=== PATIENT | male | born 1950 | race Caucasian/White ===

== ENCOUNTER 2022-02-01 10:09 | Outpatient (REF) | payer BC, SELFPAY ==
[2022-02-01 11:07] LABS: MANUAL DIFF FLAG NO
[2022-02-01 11:26] LABS: Basophils Percent Auto 0.8 % (0-2); Eosinophils Absolute Auto 0.2 X10*3/uL (0.0-0.4); Eosinophils Percent Auto 3.6 % (0-4); Hematocrit 44.8 % (42.0-52.0); Hemoglobin 15.3 g/dl (14.0-18.0); Imm Gran Abs Auto 0.02 X10*3/uL (0.00-0.03); Imm Gran Pct Auto 0.4 % (0.0-0.4); Lymphocytes Absolute Auto 1.4 X10*3/uL (1.2-4.9); Lymphocytes Percent Auto 29.3 % (20-40); Mean Corpuscular HGB Conc 34.2 g/dl (31.0-36.0); Mean Corpuscular Hemoglobin 30.9 pg (27.0-33.0); Mean Corpuscular Volume 90.5 fL (80.0-98.0); Mean Platelet Volume 9.1 fL (9.4-12.4); Monocytes Absolute Auto 0.5 X10*3/uL (0.1-1.2); Monocytes Percent Auto 10.1 % (2-11); Neutrophils Absolute Auto 2.7 x10*3/uL (2.0-8.3); Neutrophils Percent Auto 55.8 % (45-73); Platelet Count 299 X10*3/uL (160-400); Red Blood Count 4.95 X10*6/uL (4.60-5.80); Red Cell Distribution Width 11.9 % (11.0-16.0); White Blood Count 4.8 X10*3/uL (4.8-10.8)
[2022-02-01 12:05] LABS: Alanine Aminotransferase 25 U/L (0-40); Albumin Level 4.1 g/dL (3.5-5.0); Alkaline Phosphatase 82 U/L (39-117); Anion Gap 15 (12-20); Aspartate Amino Transferase 21 U/L (5-37); Bilirubin Total 0.8 mg/dL (0.0-1.0); Blood Urea Nitrogen 13 mg/dL (9-16); Calcium 9.5 mg/dL (8.4-10.2); Carbon Dioxide 30 mmol/L (22-29); Chloride 100 mmol/L (96-108); Cholesterol 220 mg/dL; Estimated Glomerular Filt Rate > 60; Glucose Fasting 90 mg/dL (60-99); HDL Cholesterol 60 mg/dL; LDL Cholesterol Calculated 142 mg/dl; Potassium 4.6 mmol/L (3.3-5.1); Sodium 140 mmol/L (135-145); Total Protein 6.6 g/dL (6.5-8.0); Triglycerides 92 mg/dL
[2022-02-01 12:26] LABS: Prostate Specific Antigen Scr 2.02 ng/mL (<0.05-4.0); TSH reflex Free T4 1.69 uIU/mL (0.32-4.0)
[2022-02-01 14:06] LABS: Appearance Urine Clear; Color Urine Yellow; Glucose Urine UA Negative (Negative); Leukocyte Esterase Urine Negative (Negative); Nitrite Urine Negative (Negative); PH 7.5 (5.0-9.0); Urine Blood Negative (Negative); Urine Ketones Negative (Negative); Urine Protein Negative (Neg-Trace)
== END 2022-02-01 10:10 | disposition home or self-care (01) ==
LOC: HO.HMGCLDS 10:09
PROVIDERS: PCP Nurse Practitioner Family; Visit Provider Nurse Practitioner Family
DX: Z00.00 Encounter for general adult medical examination without abnormal findings (principal); Z12.5 Encounter for screening for malignant neoplasm of prostate
CPT/HCPCS: 36415; 80053; 80061; 81003; 84153; 84443; 85025

== ENCOUNTER 2022-04-26 10:46 | Outpatient (REF) | payer BC, SELFPAY ==
[2022-04-26 14:36] LABS: Alanine Aminotransferase 32 U/L (0-40); Albumin Level 4.3 g/dL (3.5-5.0); Alkaline Phosphatase 82 U/L (39-117); Anion Gap 13 (12-20); Aspartate Amino Transferase 28 U/L (5-37); Bilirubin Total 0.9 mg/dL (0.0-1.0); Blood Urea Nitrogen 9 mg/dL (9-16); Calcium 9.6 mg/dL (8.4-10.2); Carbon Dioxide 31 mmol/L (22-29); Chloride 101 mmol/L (96-108); Cholesterol 186 mg/dL; Estimated Glomerular Filt Rate > 60; Glucose Random 96 mg/dL (60-115); HDL Cholesterol 64 mg/dL; LDL Cholesterol Calculated 101 mg/dl; Potassium 4.6 mmol/L (3.3-5.1); Sodium 140 mmol/L (135-145); Total Protein 6.7 g/dL (6.5-8.0); Triglycerides 108 mg/dL
== END 2022-04-26 10:47 | disposition home or self-care (01) ==
LOC: HO.HMGCLDS 10:46
PROVIDERS: PCP Nurse Practitioner Family; Visit Provider Nurse Practitioner Family
DX: E78.5 Hyperlipidemia, unspecified (principal)
CPT/HCPCS: 36415; 80053; 80061

== ENCOUNTER 2023-01-29 16:23 | Outpatient (AMB) | payer BC, SELFPAY ==
--- NOTE | 2023-01-29 16:23 | MHC.PC.OV ---
Vital Signs 01/29/23 16:24 Height 5 ft 4 in Weight 164 lb BMI 28.1 BP 130/78 Blood Pressure Location Lt brachial Position Sitting Pulse 73 Pulse Source Pulse Oximeter Pulse Oximetry (%) 95 Oxygen Delivery Method Room Air Intake Visit Reasons: Annual PE Intake Note: Pt is here today for PE. Allergies No Known Allergies Allergy (Verified 01/29/23 16:26) Tobacco use date assessed: 01/29/23 Fall risk assessment: No Falls in past year Last assessed Fall Risk: 01/29/23 Dental Screening Dental Screen Date: 01/29/23 Did you have a dental visit in the last 12 months?: No Did you have a dental problem in the last 6 months where you did not have access to dental care?: No Was dental information given to patient?: Patient declined HPI Annual PE HPI Details He for a PE. colonoscopy is up to date. Pt denies any weak urinary stream, reports emptying his bladder completely, denies excessive dribbling after urination. [facility] Medical History (Updated 01/29/23 @ 16:57 by ROSA Maxwell) Barretts esophagus Hemorrhoids COPD (chronic obstructive pulmonary disease) Carotid bruit HTN (hypertension) Surgical History Hx of tonsillectomy Family History Father No problems noted. Mother No problems noted. Social History Housing: House Patient Tobacco Use Status: Former Tobacco user Quit Date: quit 8 years ago e-Cigarette/Vaping Use: Never Used Second Hand Smoke Exposure: Yes service: No Current occupational status: retired Cognitive needs: No Hearing needs: No Vision needs: Yes Questionnaire PHQ-9 Over the last 2 weeks, how often have you been bothered by any of the following problems? 1. Little interest or pleasure in doing things: not at all 2. Feeling down, depressed, or hopeless: not at all 3. Trouble falling or staying asleep, or sleeping too much: several days 4. Feeling tired or having little energy: several days 5. Poor appetite or overeating: not at all 6. Feeling bad about yourself - or that you are a failure or have let yourself or your family down: not at all 7. Trouble concentrating on things, such as reading the newspaper or watching television: not at all 8. Moving or speaking so slowly that other people could have noticed. Or the opposite - being so fidgety or restless that you have been moving around a lot more than usual: not at all 9. Thoughts that you would be better off or of hurting yourself in some way: not at all Total score: 2 Depression Screening Interpretation: Negative Depression Screening Done: Yes Source: Developed by Drs. Kishore Medellin, Caridad Fierro, Ottoniel Bui and colleagues, with an educational dakota from [employer]. Thrive Questionnaire Date Thrive assessed: 01/29/23 I am a: Patient What is your living situation today?: I have a steady place to live Within the past 12 months, did the food you bought not last and you didn't have the money to get more?: Never true Within the past 12 months, did you worry whether your food would run out before you got money to buy more?: Never true Do you have trouble paying for medicines?: No Do you have trouble getting transportation to medical appointments?: No Do you have trouble paying your heating and electricity bill?: No Do you have trouble taking care of your child, family member or friend?: No Do you have trouble with day-to-day activities such as bathing, preparing meals, shopping, managing finances, etc.?: No Are you currently unemployed and looking for a job?: No Are you interested in more education?: No Please select the resources that you would like help with: None AUDIT C Alcohol Use Questionnaire (AUDIT-C) 1. How often do you have a drink containing alcohol?: Monthly or less 2. How many drinks containing alcohol do you have on a typical day when you are drinking?: 1 or 2 3. How often do you have six or more drinks on one occasion?: Never Total Score: 1 Score Reviewed/Action Taken: Yes WESLEY-7 AMB Questionnaire WESLEY-7 Date WESLEY - 7 assessed: 01/29/23 Feeling nervous, anxious, or on edge: 0 = Not at all Not being able to stop or control worryin = Not at all Worrying too much about different things: 0 = Not at all Trouble relaxin = Not at all Being so restless that it is hard to sit still: 0 = Not at all Becoming easily annoyed or irritable: 0 = Not at all Feeling afraid as if something awful might happen: 0 = Not at all Total WESLEY-7 score (0-4 normal; 5-9 mild; 10-14 moderate; 15-21 severe): 0 Source: Developed by Drs. Kishore Medellin, Caridad Fierro, Ottoniel Bui and colleagues, with an educational dakota from [employer]. WESLEY-7 Assessment Billing WESLEY-7 Assessment Tool: WESLEY-7 Assessment 54474 Review of Systems Const Denies chills and Denies fever(s) Eyes Denies blurry vision ENT Denies vertigo, Denies dizziness and Denies sore throat Card Denies chest pain at rest, Denies chest pain with activity, Denies diaphoresis, Denies dyspnea and Denies dyspnea on exertion Resp Denies cough, Denies dyspnea, Denies dyspnea on exertion and Denies wheezing GI Denies abdominal pain, Denies melena, Denies hematochezia, Denies constipation, Denies diarrhea and Denies loose stools Denies hematuria Musc Denies numbness and Denies tingling Skin/Breast Denies lesions Neuro Denies vertigo, Denies dizziness, Denies numbness and Denies tingling Psych Denies anxiety, Denies depression, Denies homicidal ideation, Denies suicidal ideation and Denies other (substance abuse) Aller/Immun Denies wheezing Physical exam (Primary Care) Vital Signs: Last Vital Signs Pulse 73 01/29/23 16:24 BP 130/78 01/29/23 16:24 Pulse Ox 95 01/29/23 16:24 Oxygen Delivery Method Room Air 01/29/23 16:24 BMI result Body Mass Index 28.1 Tobacco/Smoking Status: Tobacco use Status Tobacco use date assessed 01/29/23 01/29/23 16:29 Patient Tobacco Use Status Former Tobacco user 01/29/23 16:26 e-Cigarette/Vaping Use Never Used 01/29/23 16:26 PHQ-9: PHQ-9 Score PHQ-9: Total score 2 01/29/23 17:03 Depression Screening Interpretation: Negative Thrive Assessment: Date of Thrive Assessment Date Thrive assessed 01/29/23 01/29/23 16:29 Const General: cooperative Nutritional Appearance: well nourished Orientation/consciousness: patient oriented x3 HENMT Head: Yes normal to inspection, Yes normocephalic and Yes atraumatic Ears: TM normal on the right and TM normal on the left Eyes General: appearance normal, both eyes and all related structures Alignment and Position: alignment normal and position normal Neck Neck: Yes normal visual inspection and Yes no lymphadenopathy Resp Effort & Inspection: normal respiratory effort Auscultation: clear to auscultation bilaterally Cardio Rate: regular rate Rhythm: regular rhythm Heart sounds: S1 normal heart sound present, S2 normal heart sound present and no murmurs GI Palpation (GI): Soft to palpation and nontender Auscultation: normal bowel sounds Male General Exam: Yes normal external exam Penis: normal penis Scrotum: scrotum normal, testes descended bilaterally and no inguinal hernias Testes: no testicular mass Skin Rashes: no rashes Neuro General: patient oriented x3, moves all extremities, no focal motor deficits and deep tendon reflexes 2+ bilaterally Romberg Test: Negative Extrem Right lower extremity: no edema Left lower extremity: no edema Psych Affect: normal affect Attitude: cooperative Thought process: Normal thought process present Immunizations pneumoc 20-diana conj-dip cr(PF) 0.5 mL IM syringe Performing Provider: ROSA Maxwell [facility] Administered by: NORBERTO Metzger on 01/29/23 17:04 Dose Route Admin Location Dispensed Lot Number Expiration Date [employer] 0.5 mL IM Left Deltoid 0.5 mL [id number] 10/24/23 [employer] VIS Given Date VIS Provided VIS Publication Date 01/29/23 Single Vaccine 21 Eligibility Eligibility Date Funding Source Not [facility] Eligible 01/29/23 Private Assessment and Plan Assessment & Plan (1) Physical exam: Code(s): Z00.00 - Encounter for general adult medical examination without abnormal findings (2) Screening for prostate cancer: Code(s): Z12.5 - Encounter for screening for malignant neoplasm of prostate (3) Barretts esophagus: Code(s): K22.70 - Garcia's esophagus without dysplasia Plan: referring to GI for repeat endo Orders: Orders TSH reflex Free T4 Today Z00.00 - Encounter for general adult medical examination without abnormal findings UA CC w/rflx Micro + Cult Today Z00.00 - Encounter for general adult medical examination without abnormal findings Complete Blood Count Auto Diff Today Z00.00 - Encounter for general adult medical examination without abnormal findings Comprehensive [place]. Panel Fast Today Z00.00 - Encounter for general adult medical examination without abnormal findings Lipid Panel Today Z00.00 - Encounter for general adult medical examination without abnormal findings Prostate Specific Antigen Scr Today Z12.5 - Encounter for screening for malignant neoplasm of prostate Pneumococcal 20 Immunization Today Z23 - Encounter for immunization Referrals Gastroenterology Referral K22.70 - Garcia's esophagus without dysplasia Coding Level of Care Code Est Pt Prev Care >65y(73710) Diagnoses Physical exam Z00.00 Screening for prostate cancer Z12.5 Barretts esophagus K22.70 Additional Codes WESLEY-7 Assessment Billing - WESLEY-7 Assessment Tool: WESLEY-7 Assessment 87605 ([id number])
[2023-01-29 16:24] VITALS: BP 130/78; PULSE 73; O2SAT 95; BMI 28.1
== END 2023-01-29 17:05 | disposition home or self-care (01) ==
PROVIDERS: PCP Nurse Practitioner Family; Visit Provider Nurse Practitioner Family
DX: Z00.00 Encounter for general adult medical examination without abnormal findings (principal); Z12.5 Encounter for screening for malignant neoplasm of prostate; K22.70 Barrett's esophagus without dysplasia; Z23 Encounter for immunization
CPT/HCPCS: 90471; 90677; 99397

== ENCOUNTER 2023-02-05 09:00 | Outpatient (REF) | payer MEDICARE, SELFPAY ==
[2023-02-05 11:46] LABS: MANUAL DIFF FLAG NO
[2023-02-05 11:47] LABS: Appearance Urine Clear; Color Urine Yellow; Glucose Urine UA Negative (Negative); Leukocyte Esterase Urine Negative (Negative); Nitrite Urine Negative (Negative); PH 6.5 (5.0-9.0); Urine Blood Negative (Negative); Urine Ketones Negative (Negative); Urine Protein Negative (Neg-Trace)
[2023-02-05 12:15] LABS: Basophils Percent Auto 0.7 % (0-2); Eosinophils Absolute Auto 0.2 X10*3/uL (0.0-0.4); Eosinophils Percent Auto 4.1 % (0-4); Hematocrit 41.5 % (42.0-52.0); Hemoglobin 14.1 g/dl (14.0-18.0); Imm Gran Abs Auto 0.03 X10*3/uL (0.00-0.03); Imm Gran Pct Auto 0.7 % (0.0-0.4); Lymphocytes Absolute Auto 1.4 X10*3/uL (1.2-4.9); Lymphocytes Percent Auto 32.8 % (20-40); Mean Corpuscular Hemoglobin 29.6 pg (27.0-33.0); Mean Platelet Volume 9.1 fL (9.4-12.4); Monocytes Absolute Auto 0.5 X10*3/uL (0.1-1.2); Neutrophils Absolute Auto 2.1 x10*3/uL (2.0-8.3); Neutrophils Percent Auto 50.7 % (45-73); Platelet Count 243 X10*3/uL (160-400); Red Blood Count 4.77 X10*6/uL (4.60-5.80); Red Cell Distribution Width 12.2 % (11.0-16.0); White Blood Count 4.2 X10*3/uL (4.8-10.8)
[2023-02-05 12:16] LABS: Alanine Aminotransferase 22 U/L (0-40); Albumin Level 3.9 g/dL (3.5-5.0); Alkaline Phosphatase 69 U/L (39-117); Anion Gap 10 (12-20); Aspartate Amino Transferase 20 U/L (5-37); Bilirubin Total 0.7 mg/dL (0.0-1.0); Blood Urea Nitrogen 13 mg/dL (9-16); Calcium 9.3 mg/dL (8.4-10.2); Carbon Dioxide 30 mmol/L (22-29); Chloride 104 mmol/L (96-108); Cholesterol 164 mg/dL (<200); Estimated Glomerular Filt Rate > 60; Glucose Fasting 100 mg/dL (60-99); HDL Cholesterol 52 mg/dL (>40); LDL Cholesterol Calculated 94 mg/dL (<100); Potassium 3.9 mmol/L (3.3-5.1); Sodium 140 mmol/L (135-145); Total Protein 6.5 g/dL (6.5-8.0); Triglycerides 90 mg/dL (<150)
[2023-02-05 12:22] LABS: TSH reflex Free T4 1.66 uIU/mL (0.32-4.0)
[2023-02-05 12:27] LABS: Prostate Specific Antigen Scr 1.68 ng/mL (<0.05-4.0)
== END 2023-02-05 09:01 | disposition home or self-care (01) ==
LOC: HO.HMGCLDS 09:00
PROVIDERS: PCP Nurse Practitioner Family; Visit Provider Nurse Practitioner Family
DX: Z00.00 Encounter for general adult medical examination without abnormal findings (principal); Z12.5 Encounter for screening for malignant neoplasm of prostate; D72.819 Decreased white blood cell count, unspecified; I10 Essential (primary) hypertension; E78.5 Hyperlipidemia, unspecified
CPT/HCPCS: 36415; 80053; 80061; 81003; 84153; 84443; 85025

== ENCOUNTER 2023-04-08 11:55 | Outpatient (REF) | payer MEDICARE, SELFPAY ==
[2023-04-08 13:41] LABS: MANUAL DIFF FLAG NO
[2023-04-08 13:48] LABS: Basophils Absolute Auto 0.1 X10*3/uL (0.0-0.2); Basophils Percent Auto 0.5 % (0-2); Eosinophils Absolute Auto 0.1 X10*3/uL (0.0-0.4); Eosinophils Percent Auto 1.1 % (0-4); Hematocrit 42.9 % (42.0-52.0); Hemoglobin 14.5 g/dl (14.0-18.0); Imm Gran Abs Auto 0.03 X10*3/uL (0.00-0.03); Imm Gran Pct Auto 0.3 % (0.0-0.4); Lymphocytes Absolute Auto 1.4 X10*3/uL (1.2-4.9); Mean Corpuscular HGB Conc 33.8 g/dl (31.0-36.0); Mean Corpuscular Hemoglobin 30.1 pg (27.0-33.0); Mean Platelet Volume 9.2 fL (9.4-12.4); Monocytes Absolute Auto 0.9 X10*3/uL (0.1-1.2); Monocytes Percent Auto 9.1 % (2-11); Neutrophils Absolute Auto 7.5 x10*3/uL (2.0-8.3); Platelet Count 291 X10*3/uL (160-400); Red Blood Count 4.82 X10*6/uL (4.60-5.80)
== END 2023-04-08 11:56 | disposition home or self-care (01) ==
LOC: HO.HMGCLDS 11:55
PROVIDERS: PCP Nurse Practitioner Family; Visit Provider Nurse Practitioner Family
DX: D72.819 Decreased white blood cell count, unspecified (principal)
CPT/HCPCS: 36415; 85025

== ENCOUNTER 2023-05-14 10:45 | Day surgery (SDC) | payer MEDICARE, SELFPAY ==
[2023-05-09 09:11] VITALS: BMI 27.0
[2023-05-14 10:53] VITALS: BMI 27.7
[2023-05-14 11:03] VITALS: BP 148/89; PULSE 73; RESP 16; TEMP 36.3; O2SAT 97
--- NOTE | 2023-05-14 11:14 | HO.ANESPROP2 ---
[facility] Active Problems Active Problems: All Active Problems (Updated 05/09/23 @ 09:03 by Claudia Luis RN) Leukopenia (Acute) Dyslipidemia (Acute) Screening for prostate cancer (Acute) Physical exam (Acute) Barretts esophagus (Acute) HTN (hypertension) (Acute) COPD (chronic obstructive pulmonary disease) (Acute) Past Medical History Medical History (Updated 05/09/23 @ 09:03 by Claudia Luis RN) Diverticulosis Hyperlipidemia Barretts esophagus Hemorrhoids COPD (chronic obstructive pulmonary disease) Carotid bruit HTN (hypertension) Family History Family History Father No problems noted. Mother No problems noted. Family history of problems with anesthesia: No Surgical History Surgical History (Updated 05/09/23 @ 09:03 by Claudia Luis RN) H/O colonoscopy History of esophagogastroduodenoscopy (EGD) Hx of tonsillectomy History of Problems with Anesthesia: No Social History Social History Housing: House Patient Tobacco Use Status: Former Tobacco user Quit Date: quit 8 years ago e-Cigarette/Vaping Use: Never Used Second Hand Smoke Exposure: Yes Use of substances other than those prescribed or required for medical reasons: Yes Are you DNR?: No Advance Directives: No Advance Directives Information Provided: Yes service: No Current occupational status: retired Cognitive needs: No Hearing needs: No Vision needs: Yes Meds Allergies Allergy/AdvReac Type Severity Reaction Status Date / Time No Known Allergies Allergy Verified 01/29/23 16:26 Active Medications: Current Medications Lactated Ringer's (Lr) 1,000 mls @ 80 mls/hr IVCONT .[id number] [facility] Home Medications Medication Instructions Recorded Confirmed Last Taken Type lisinopril 10 mg tablet 10 mg PO DAILY 05/09/23 05/09/23 Unknown History omeprazole 20 mg tablet,delayed 20 mg PO DAILY 05/09/23 05/09/23 05/14/23 History release rosuvastatin 5 mg tablet 5 mg PO DAILY 05/14/23 05/14/23 Unknown History Exam Height,Weight and Vital Signs: Height 5 ft 5.5 in Weight 76.714 kg Last Vital Signs Temp 97.3 F 05/14/23 11:03 Pulse 73 05/14/23 11:03 Resp 16 05/14/23 11:03 BP 148/89 H 05/14/23 11:03 Pulse Ox 97 05/14/23 11:03 O2 Del Method Room Air 05/14/23 11:03 Airway Mallampati Class: II TM Dist: >3cm Neck ROM: Full Assessment and Plan Assessment Anesthesia Assessment: Anesthesia Plan Discussed and Chart Reviewed Final Anesthetic Review Family History of Problems with Anesthesia: No History of Problems with Anesthesia: No NPO: Yes ASA Class: III Final Preanesthetic Review: No Changes in Pt Med Stat, Meds/Allgs Chart Reviewed, Consent Obtained/Reviewed and Anes Risks/Benef Reviewed Patient Risk: Intermediate Procedure Risk: Low Anesthetic Plan Anesthetic Plan: TIVA Disposition: Standard PACU
[2023-05-14] MEDS: Lactated Ringers 1,000 ML 80 ML IVCONT (11:22)
--- NOTE | 2023-05-14 11:28 | MHC.SHP ---
Pre-Procedural Eval Section A - 24 Hr Update-Section A only Date of Service: 05/14/23 The patient is an INPATIENT: No Changes since office visit: No Cold of Flu in the past 2 weeks, No New Medical Problems, No Changes in Medication and No Patient answered all questions The patient has been examined within 24 hours of the surgical procedure. 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 No changes have occurred unless specified. Time Spent With Patient Time: Total time managing care of this patient today ____ minutes.
--- NOTE | 2023-05-14 11:43 | PC.NURSE ---
patient waiting due to upper endo scope not available.
[2023-05-14 12:07] VITALS: BP 106/72; PULSE 80; RESP 16; TEMP 36.4; O2SAT 97
--- NOTE | 2023-05-14 12:18 | OP_ITS ---
DATE OF SERVICE: 05/14/2023 SURGEON: Adan Velasquez MD INDICATIONS: Garcia esophagus. PREOPERATIVE DIAGNOSIS: POSTOPERATIVE DIAGNOSIS: PROCEDURE PERFORMED: Upper endoscopy with biopsy. ESTIMATED BLOOD LOSS: COMPLICATIONS: ANESTHESIA: Medications; monitored anesthesia care. ASSISTANTS: SPECIMENS: DESCRIPTION OF PROCEDURE: History and physical performed. The risks and benefits of the procedure were explained to the patient. Informed consent was obtained. The patient was placed in the left lateral decubitus position. The Olympus video gastroscope was introduced into the esophagus, stomach, and duodenum. Examination was performed and the scope was removed. He tolerated the procedure well and was returned to recovery area in stable condition. FINDINGS: 1. Esophagus: There was a 1 cm area of Garcia esophagus with no raised lesions or ulcerated areas. Biopsies were obtained at 39 cm. 2. Stomach: The stomach was normal. 3. Duodenum: The bulb and second portion were normal. IMPRESSION: Garcia esophagus. RECOMMENDATIONS: Follow up the biopsy results. MD AMBER Davis/MODL / [id number]
[2023-05-14 12:27] VITALS: BP 113/74; PULSE 74; RESP 18; TEMP 36.3; O2SAT 97
== END 2023-05-14 13:43 | disposition home or self-care (01) ==
PROVIDERS: PCP Nurse Practitioner Family; Visit Provider Internal Medicine Gastroenterology
PROC: 0DJ08ZZ Inspection of Upper Intestinal Tract, Via Natural or Artificial Opening Endoscopic (ICD-10-PCS; CPT 43235; principal; 2023-05-14 11:50)
DX: K22.70 Barrett's esophagus without dysplasia (principal); I10 Essential (primary) hypertension; E78.5 Hyperlipidemia, unspecified; J44.9 Chronic obstructive pulmonary disease, unspecified; Z80.1 Family history of malignant neoplasm of trachea, bronchus and lung; Z79.899 Other long term (current) drug therapy; Z87.891 Personal history of nicotine dependence
CPT/HCPCS: 43239; 88305

== ENCOUNTER 2024-02-14 09:33 | Outpatient (REF) | payer MEDICARE, SELFPAY ==
[2024-02-14 13:05] LABS: MANUAL DIFF FLAG NO
[2024-02-14 13:17] LABS: Appearance Urine Clear; Color Urine Yellow; Glucose Urine UA Negative (Negative); Leukocyte Esterase Urine Small (1+) (Negative); Nitrite Urine Negative (Negative); PH 5.5 (5.0-9.0); UMIC TRIGGER UACC YES; Urine Blood Negative (Negative); Urine Ketones Negative (Negative); Urine Protein Negative (Neg-Trace)
[2024-02-14 13:18] LABS: Basophils Percent Auto 0.8 % (0-2); Eosinophils Absolute Auto 0.1 X10*3/uL (0.0-0.4); Eosinophils Percent Auto 2.8 % (0-4); Hematocrit 47.7 % (42.0-52.0); Hemoglobin 15.9 g/dl (14.0-18.0); Imm Gran Abs Auto 0.01 X10*3/uL (0.00-0.03); Imm Gran Pct Auto 0.2 % (0.0-0.4); Lymphocytes Absolute Auto 1.5 X10*3/uL (1.2-4.9); Lymphocytes Percent Auto 30.5 % (20-40); Mean Corpuscular HGB Conc 33.3 g/dl (31.0-36.0); Mean Platelet Volume 9.3 fL (9.4-12.4); Monocytes Absolute Auto 0.5 X10*3/uL (0.1-1.2); Monocytes Percent Auto 9.2 % (2-11); Neutrophils Absolute Auto 2.8 x10*3/uL (2.0-8.3); Neutrophils Percent Auto 56.5 % (45-73); Platelet Count 252 X10*3/uL (160-400); Red Cell Distribution Width 12.1 % (11.0-16.0)
[2024-02-14 13:29] LABS: Bacteria Urine None Seen (None Seen); Hyaline Casts Urine 0-2 /LPF (0-2); RBC Urine 0-2 /HPF (0-2); Squamous Epithelial Cell Urine 0-2 /HPF (0-2); UACC Culture Trigger YES; WBC Urine 0-5 /HPF (0-5)
[2024-02-14 13:45] LABS: Alanine Aminotransferase 25 U/L (0-40); Albumin Level 4.3 g/dL (3.5-5.0); Alkaline Phosphatase 76 U/L (39-117); Anion Gap 12 (12-20); Aspartate Amino Transferase 27 U/L (5-37); Bilirubin Total 0.6 mg/dL (0.0-1.0); Blood Urea Nitrogen 11 mg/dL (9-16); Carbon Dioxide 32 mmol/L (22-29); Chloride 100 mmol/L (96-108); Cholesterol 199 mg/dL (<200); Estimated Glomerular Filt Rate > 60; Glucose Fasting 93 mg/dL (60-99); HDL Cholesterol 55 mg/dL (>40); LDL Cholesterol Calculated 124 mg/dL (<100); Potassium 4.4 mmol/L (3.3-5.1); Sodium 140 mmol/L (135-145); Triglycerides 100 mg/dL (<150)
[2024-02-14 13:49] LABS: TSH reflex Free T4 1.64 uIU/mL (0.32-4.0); Vitamin D 25-OH Total 83.9 ng/mL (>30)
== END 2024-02-14 09:34 | disposition home or self-care (01) ==
LOC: HO.HMGCLDS 09:33
PROVIDERS: PCP Nurse Practitioner Family; Visit Provider Nurse Practitioner Family
DX: Z00.00 Encounter for general adult medical examination without abnormal findings (principal); E55.9 Vitamin D deficiency, unspecified; Z12.5 Encounter for screening for malignant neoplasm of prostate; R82.90 Unspecified abnormal findings in urine
CPT/HCPCS: 36415; 80053; 80061; 81001; 82306; 84153; 84443; 85025; 87086

== ENCOUNTER 2024-02-24 11:00 | Outpatient (REF) | payer MEDICARE, SELFPAY ==
--- NOTE | ~2024-02-24 | XR_ITS ---
EXAMINATION: XR CHEST CLINICAL INFORMATION: Shortness of breath R06.02. COMPARISON: CT Chest without contrast 07/18/2018 TECHNIQUE: 2 views of the chest were obtained. FINDINGS: The lungs are clear. The cardiomediastinal silhouette is normal in size. There is no pleural effusion or pneumothorax. No acute osseous abnormality. XR/XR chest 2V IMPRESSION: No acute cardiopulmonary findings. Electronically signed by: Mike Pisano MD 04/08/2024 11:13 AM [facility]
== END 2024-02-24 11:01 | disposition home or self-care (01) ==
LOC: HO.HMGCX 11:00
PROVIDERS: PCP Nurse Practitioner Family; Visit Provider Nurse Practitioner Family
DX: Z00.00 Encounter for general adult medical examination without abnormal findings (principal); R06.02 Shortness of breath; K22.70 Barrett's esophagus without dysplasia; R09.89 Other specified symptoms and signs involving the circulatory and respiratory systems; J44.9 Chronic obstructive pulmonary disease, unspecified; M40.209 Unspecified kyphosis, site unspecified; E66.9 Obesity, unspecified; I65.29 Occlusion and stenosis of unspecified carotid artery
CPT/HCPCS: 71046; 93005; 96127; 99397

== ENCOUNTER 2024-02-24 11:00 | Outpatient (AMB) | payer MEDICARE, SELFPAY ==
[2024-02-24 11:02] VITALS: BP 118/70; PULSE 82; O2SAT 98; BMI 27.5
--- NOTE | 2024-02-24 11:02 | A.OFFPC_ITS ---
Vital Signs 02/24/24 11:02 Height 5 ft 5.5 in Weight 168 lb BMI 27.5 BP 118/70 Blood Pressure Location Rt brachial Position Sitting Pulse 82 Pulse Source Pulse Oximeter Pulse Oximetry (%) 98 Oxygen Delivery Method Room Air Intake Visit Reasons: Annual PE Intake Note: pt is here for annual exam Media Analyst Required: No Accompanied by: Self / Same As Patient Allergies No Known Allergies Allergy (Verified 02/24/24 11:03) Medication List - Last Reconciled 02/24/24 by KRYSTINA [facility] albuterol sulfate 90 mcg/actuation (Ventolin HFA) 2 puffs inhalation QID lisinopril 40 mg PO DAILY 90 days omeprazole 20 mg PO DAILY rosuvastatin 5 mg PO DAILY Tobacco use date assessed: 02/24/24 Fall risk assessment: No Falls in past year Last assessed Fall Risk: 02/24/24 Dental Screening Dental Screen Date: 02/24/24 Did you have a dental visit in the last 12 months?: Yes Did you have a dental problem in the last 6 months where you did not have access to dental care?: No Was dental information given to patient?: Patient has dentist HPI Annual PE HPI Details History of Present Illness The patient is a 73-year-old male presenting for an annual physical examination and evaluation of respiratory symptoms. He has a history of Chronic Obstructive Pulmonary Disease (COPD), attributed to a past smoking history of 25-30years at one pack per day; however, he has been abstinent for close to 20 years. He reports experiencing occasional shortness of breath and is asymptomatic regarding chest pain and cough. A previous evaluation of his carotid stenosis was mentioned, but no specific interventions were noted (no recent imaging). His LDL cholesterol is elevated at 124 mg/dL, while total cholesterol reads at 199 mg/dL. Recent laboratory tests revealed normal liver and kidney function. The patient's PSA levels are up-to-date, and vitamin D levels are within normal limits. His colonoscopy is current, with a follow-up endoscopy is due this upcoming winter, seeing gastro in apr already. Social History - Former smoker: ceased 20 years ago aft er a 25-year period of one pack per day. - Obesity present; last three years of i nactive employment. Review of Systems - Respiratory: Reports shortness of myrtle th with exertion - Cardiovascular: Denies chest pain. - Gastrointestinal: Denies abdominal ten derness, constipation, diarrhea, and blood in stool. - General: Denies weight loss. Physical Exam General: Cooperative, healthy appearing, comfortable, no acute distress and well developed, upper thoracic kyphosis noted Orientation: Patient oriented x3 Limitations: No limitations Head: Normal to inspection Ears: Hearing grossly normal bilaterally Nose: Normal external nose present Face and sinus: Normal facial exam Eyes: Appearance normal, both eyes and all related structures Neck: Normal visual inspection and Yes full ROM Respiratory: Normal respiratory effort and able to speak in complete sentences. Clear to auscultation bilaterally/faintly dim bilat Cardiovascular: Regular rate and rhythm. Normal S1 and S2. No carotid bruits to auscultation GI: Normal to inspection. Soft to palpation and nontender. No abdominal tenderness noted : refuses BRITTNEY today Skin: No rashes or lesions noted Neuro: Patient oriented x3 Extremities: Normal to inspection. No edema noted Results - Labs: Cholesterol - LDL 124 mg/dL, Tot al Cholesterol 199 mg/dL. - PSA: Up to date. - Vitamin D: Within normal limits. - Respiratory function testing and chest x-ray planned. - Ultrasound imaging previously for driscoll tid stenosis, additional imaging pending. Plan - Chronic Obstructive Pulmonary Disease: Administer an albuterol inhaler as needed for relief of shortness of breath, monitor usage, and initiate pulmonary function testing. Consider a maintenance inhaler if symptoms persist beyond usage parameters. EKG done in the office today. - Kyphosis: Monitor and reassess as part of annual exams. - Obesity: Address weight management str ategies in subsequent follow-ups. - Carotid Stenosis: Schedule an updated ultrasound to reassess the condition. - Cholesterol Elevation: Monitor and adv ise dietary and lifestyle modifications. - Preventative measures: Schedule endosc opic surveillance per recommended guidelines. Patient was informed and verbally consented to the use of an ambient scribe for clinic note documentation during this visit. Discussion Notes During the visit, I discussed with the patient the management of his COPD, emphasizing the use of the albuterol inhaler and the need for follow-up pulmonary function testing. I explained the risks of overutilization of the inhaler and the potential for subsequent tachycardia. I advised him of the necessity for a chest x-ray and re-emphasized the importance of regular follow- ups for his kyphosis and carotid stenosis. We reviewed his current lab results, noting the elevated cholesterol and the normal range of other metabolic functions. I encouraged maintaining healthy vitamin D levels and keeping PSA screenings up-to-date. The patient was informed of the recommended timeline for his repeat endoscopy and the importance of maintaining a preventive care schedule. Patient Instructions - Use albuterol inhaler as needed, told pt to call me if using more than twice a week - Report if respiratory symptoms necessi aaron more frequent use. - Follow-up for pulmonary function testi ng and carotid ultrasound as scheduled. - Continue with planned endoscopic surve illance. - Engage in weight management and lifest yle changes to address obesity and cholesterol levels. - Attend follow-up visit in six months f or reassessment of overall health status. [facility] Medical History Diverticulosis Hyperlipidemia Barretts esophagus Hemorrhoids COPD (chronic obstructive pulmonary disease) Carotid bruit HTN (hypertension) Surgical History H/O colonoscopy History of esophagogastroduodenoscopy (EGD) Hx of tonsillectomy Family History Father No problems noted. Mother No problems noted. Social History Housing: House Patient Tobacco Use Status: Former Tobacco user e-Cigarette/Vaping Use: Never Used Second Hand Smoke Exposure: Yes service: No Current occupational status: retired Cognitive needs: No Hearing needs: No Vision needs: Yes Questionnaire PHQ-9 Over the last 2 weeks, how often have you been bothered by any of the following problems? 1. Little interest or pleasure in doing things: not at all 2. Feeling down, depressed, or hopeless: not at all 3. Trouble falling or staying asleep, or sleeping too much: not at all 4. Feeling tired or having little energy: not at all 5. Poor appetite or overeating: not at all 6. Feeling bad about yourself - or that you are a failure or have let yourself or your family down: not at all 7. Trouble concentrating on things, such as reading the newspaper or watching television: not at all 8. Moving or speaking so slowly that other people could have noticed. Or the opposite - being so fidgety or restless that you have been moving around a lot more than usual: not at all 9. Thoughts that you would be better off or of hurting yourself in some way: not at all Total score: 0 Depression Screening Interpretation: Negative Depression Screening Done: Yes 37732 - PHQ-9 Billing: Yes Source: Developed by Drs. Kishore Medellin, Caridad Fierro, Ottoniel Bui and colleagues, with an educational dakota from [employer]. Thrive Questionnaire Date Thrive assessed: 02/24/24 I am a: Patient What is your living situation today?: I have a steady place to live Within the past 12 months, did the food you bought not last and you didn't have the money to get more?: Never true Within the past 12 months, did you worry whether your food would run out before you got money to buy more?: Never true Do you have trouble paying for medicines?: No Do you have trouble getting transportation to medical appointments?: No Do you have trouble paying your heating and electricity bill?: No Do you have trouble taking care of your child, family member or friend?: No Do you have trouble with day-to-day activities such as bathing, preparing meals, shopping, managing finances, etc.?: No Are you currently unemployed and looking for a job?: No Are you interested in more education?: No Please select the resources that you would like help with: None Currently or been in a relationship where the following occur: I choose not to answer THRIVE Score: 0 AUDIT C Alcohol Use Questionnaire (AUDIT-C) 1. How often do you have a drink containing alcohol?: 2-3 times a week 2. How many drinks containing alcohol do you have on a typical day when you are drinking?: 1 or 2 3. How often do you have six or more drinks on one occasion?: Monthly Total Score: 5 Score Reviewed/Action Taken: Yes WESLEY-7 AMB Questionnaire WESLEY-7 Date WESLEY - 7 assessed: 02/24/24 Feeling nervous, anxious, or on edge: 0 = Not at all Not being able to stop or control worryin = Not at all Worrying too much about different things: 0 = Not at all Trouble relaxin = Not at all Being so restless that it is hard to sit still: 0 = Not at all Becoming easily annoyed or irritable: 0 = Not at all Feeling afraid as if something awful might happen: 0 = Not at all Total WESLEY-7 score (0-4 normal; 5-9 mild; 10-14 moderate; 15-21 severe): 0 Source: Developed by Drs. Kishore Medellin, Caridad Fierro, Ottoniel Bui and colleagues, with an educational dakota from [employer]. WESLEY-7 Assessment Billing WESLEY-7 Assessment Tool: WESLEY-7 Assessment 53790 Physical exam (Primary Care) Vital Signs: Last Vital Signs Pulse 82 02/24/24 11:02 BP 118/70 02/24/24 11:02 Pulse Ox 98 02/24/24 11:02 Oxygen Delivery Method Room Air 02/24/24 11:02 BMI result Body Mass Index 27.5 Tobacco/Smoking Status: Tobacco use Status Tobacco use date assessed 02/24/24 02/24/24 11:03 Patient Tobacco Use Status Former Tobacco user 02/24/24 11:03 e-Cigarette/Vaping Use Never Used 02/24/24 11:03 PHQ-9: PHQ-9 Score PHQ-9: Total score 0 02/24/24 11:03 Depression Screening Interpretation: Negative Thrive Assessment: Date of Thrive Assessment Date Thrive assessed 02/24/24 02/24/24 11:03 Currently or been in a relationship where the following occur: I choose not to answer Coding Level of Care Code Est Pt Prev Care >65y(51060) Diagnoses SOB (shortness of breath) on exertion R06.02 Barretts esophagus K22.70 Carotid bruit R09.89 Additional Codes WESLEY-7 Assessment Billing - WESLEY-7 Assessment Tool: WESLEY-7 Assessment 86068 ([id number]) PHQ-9 - 62599 - PHQ-9 Billing: Yes ([id number]) Assessment & Plan Assessment & Plan (1) SOB (shortness of breath) on exertion: Code(s): R06.02 - Shortness of breath Category: Medical (2) Barretts esophagus: Code(s): K22.70 - Garcia's esophagus without dysplasia Category: Medical (3) Carotid bruit: Code(s): R09.89 - Other specified symptoms and signs involving the circulatory and respiratory systems Category: Medical Plan . Orders: Orders PFT pulmonary function test Today K22.70 - Garcia's esophagus without dysplasia, R06.02 - Shortness of breath XR chest 2V Today R06.02 - Shortness of breath US carotid duplex BI Today R09.89 - Other specified symptoms and signs involving the circulatory and respiratory systems AMB EKG-In Office Today R06.02 - Shortness of breath Medications: New albuterol sulfate 90 mcg/actuation (Ventolin HFA) 2 puffs inhalation QID 8.5 grams 0RF
== END 2024-02-24 11:40 | disposition home or self-care (01) ==
PROVIDERS: PCP Nurse Practitioner Family; Visit Provider Nurse Practitioner Family
DX: Z00.00 Encounter for general adult medical examination without abnormal findings (principal); R06.02 Shortness of breath; K22.70 Barrett's esophagus without dysplasia; R09.89 Other specified symptoms and signs involving the circulatory and respiratory systems

== ENCOUNTER 2024-03-02 13:57 | Outpatient (REF) | payer MEDICARE, SELFPAY ==
--- NOTE | ~2024-03-02 | US_ITS ---
EXAMINATION: US EXTRACRANIAL CAROTID DUPLEX, BILATERAL CLINICAL INFORMATION: Bilateral carotid bruits COMPARISON: 07/23/2014 TECHNIQUE: Real-time ultrasound and Doppler techniques (integrating B-mode 2-D vascular images, Doppler spectral analysis and color-flow Doppler imaging) were utilized to interrogate the extracranial carotid arteries, the vertebral arteries and proximal subclavian arteries bilaterally. The degree of stenosis is determined by criteria similar to NASCET. FINDINGS: Right Side: 1. There is no significant atherosclerotic plaque seen in the bifurcation/proximal ICA region. 2. The common carotid artery PSV proximally is 114 cm/s and distally 109 cm/s. 3. The proximal internal carotid artery velocities are 80 cm/s systolic and 35 cm/s diastolic. 4. The proximal external carotid artery PSV is 105 cm/s. 5. The vertebral artery shows antegrade flow. 6. The subclavian artery waveforms are normal. Left Side: 1. There is no significant atherosclerotic plaque seen in the bifurcation/proximal ICA region. 2. The common carotid artery PSV proximally is 1:15 cm/s and distally 60 cm/s. 3. The proximal internal carotid artery velocities are 94 cm/s systolic and 39 cm/s diastolic. 4. The proximal external carotid artery PSV is 112 cm/s. 5. The vertebral artery shows antegrade flow. 6. The subclavian artery waveforms are normal. US/US carotid duplex BI IMPRESSION: 1. RIGHT: Minimal, non-hemodynamically significant stenosis of the proximal right internal carotid artery corresponding to a 0-49% stenosis by velocity criteria. 2. LEFT: Minimal, non-hemodynamically significant stenosis of the proximal left internal carotid artery corresponding to a 0-49% stenosis by velocity criteria. 3. There is been no significant interval change since 2014 although some mild plaque was felt to be present on the left at the time of the prior study. Electronically signed by: Delfino Berman MD 03/11/2024 05:01 PM [facility]
== END 2024-03-02 13:58 | disposition home or self-care (01) ==
LOC: HO.HMGCX 13:57
PROVIDERS: PCP Nurse Practitioner Family; Visit Provider Nurse Practitioner Family
DX: R09.89 Other specified symptoms and signs involving the circulatory and respiratory systems (principal)
CPT/HCPCS: 93880

== ENCOUNTER 2024-04-08 13:51 | Outpatient (REF) | payer MEDICARE, SELFPAY ==
--- NOTE | 2024-04-08 14:09 | PFT_ITS ---
Flows: FEV1: 37 % of predicted at 0.97 L FVC: 71 % of predicted at 2.42 L FEV1/FVC: 40 % Bronchodilator response: Present Volumes: Total lung capacity: 93 % of predicted at 5.59 L Residual volume: 135 % of predicted at 3.02 L Slow vital capacity: 70 % of predicted at 2.57 L Expiratory reserve volume: 85 % of predicted at 0.81 L Diffusion capacity: Mildly decreased, corrects to normal after adjustment for alveolar ventilation. Impression: Severe to very severe obstructive ventilatory defect with positive bronchodilator response. Increased residual volume suggests air trapping. Decreased diffusion capacity suggests emphysema. MTDD
== END 2024-04-08 13:52 | disposition home or self-care (01) ==
LOC: HO.RESP 13:51
PROVIDERS: PCP Nurse Practitioner Family; Visit Provider Nurse Practitioner Family
DX: R06.02 Shortness of breath (principal); K22.70 Barrett's esophagus without dysplasia
CPT/HCPCS: 94010; 94640; 94727; 94729

== ENCOUNTER → 2024-04-08 14:09 | Outpatient (BNV) | payer MEDICARE, SELFPAY | PROVIDERS: PCP Nurse Practitioner Family; Visit Provider Internal Medicine Pulmonary Disease | DX: R06.02 Shortness of breath (principal) | CPT/HCPCS: 94060; 94727; 94729 ==

== ENCOUNTER 2024-05-15 13:36 | Outpatient (AMB) | payer MEDICARE, SELFPAY ==
[2024-05-15 13:51] VITALS: BP 110/67; PULSE 94; O2SAT 94; BMI 27.7
--- NOTE | 2024-05-15 13:51 | A.OFFVIS_ITS ---
Vital Signs 05/15/24 13:51 Height 5 ft 5.5 in Weight 169 lb BMI 27.7 BP 110/67 Blood Pressure Location Lt brachial Position Sitting Pulse 94 Pulse Source Doppler Pulse Oximetry (%) 94 Oxygen Delivery Method Room Air Intake Visit Reasons: copd Allergies No Known Allergies Allergy (Verified 05/15/24 13:54) HPI HPI copd: Details: 74-year-old gentleman, 40+ pack-year smoker, quit 2015 with underlying severe to very severe COPD based on pulmonary function testing referred for pulmonary follow-up. Patient denies any dyspnea on exertion, except when he carries 40 lb wooden pellet beg up and down the stairs. He denies wheezing, coughing, or sputum production. Patient denies having family history of lung disease. [facility] Medical History (Updated 05/15/24 @ 14:14 by Javier Blas MD) Diverticulosis Hyperlipidemia Barretts esophagus Hemorrhoids COPD (chronic obstructive pulmonary disease) Carotid bruit HTN (hypertension) Surgical History H/O colonoscopy History of esophagogastroduodenoscopy (EGD) Hx of tonsillectomy Family History Father No problems noted. Mother No problems noted. Social History (Updated 05/15/24 @ 13:58 by Clemencia Breen Albert) Housing: House Patient Tobacco Use Status: Former Tobacco user Tobacco use type: Cigarette Years Smoked: 10 in 2015, started around age 14, 1.5PPD e-Cigarette/Vaping Use: Never Used Second Hand Smoke Exposure: Yes service: No Current occupational status: retired Cognitive needs: No Hearing needs: No Vision needs: Yes Review of Systems Const Denies daytime sleepiness, Denies excessive sweating, Denies fatigue, Denies fever(s), Denies lethargy, Denies malaise, Denies night sweats, Denies snoring and Denies weight loss Eyes Denies blurry vision and Denies itchy eyes ENT Denies nasal congestion, Denies post nasal drip, Denies sinus pain, Denies sinus pressure and Denies other ( Thrush) Card Denies chest pain, Denies pedal edema, Denies dyspnea, Denies orthopnea and Denies paroxysmal nocturnal dyspnea Resp Denies cough, Denies hemoptysis, Denies excessive phlegm production, Denies dyspnea, Denies snoring and Denies wheezing GI Denies abdominal pain and Denies heartburn Musc Denies myalgias, Denies arthralgias and Denies joint swelling Skin/Breast Denies rash Neuro Denies memory loss and Denies seizure-like activity Psych Denies abnormal sleep pattern, Denies anxiety and Denies memory loss Endo Denies excessive sweating, Denies fatigue and Denies heat intolerance Tristin/Lymph Denies easy bruising Aller/Immun Denies itchy eyes, Denies seasonal rhinorrhea and Denies wheezing Physical Exam Vital Signs: Last Vital Signs Pulse 94 05/15/24 13:51 BP 110/67 05/15/24 13:51 Pulse Ox 94 05/15/24 13:51 Oxygen Delivery Method Room Air 05/15/24 13:51 BMI result Body Mass Index 27.7 Const General: no acute distress and alert Nutritional Appearance: not obese Orientation/consciousness: Other orientation findings ( oriented) HEENT Head: Yes atraumatic Eyes General: appearance normal, both eyes and all related structures Sclerae: sclerae normal EOM: EOMs intact bilaterally Neck Neck: Yes supple Lymphatic: no lymphadenopathy noted Resp Effort & Inspection: normal respiratory effort and no use of accessory muscles Auscultation: clear to auscultation bilaterally Cardio Rate: regular rate Rhythm: regular rhythm Heart sounds: no gallops, no murmurs and no rubs Skin General skin exam: other ( warm) Extrem General: No clubbing, No cyanosis and No edema Assessment & Plan Assessment & Plan (1) COPD (chronic obstructive pulmonary disease): Code(s): J44.9 - Chronic obstructive pulmonary disease, unspecified Category: Medical Plan: Pulmonary function test reviewed, underlying severe to very severe COPD with minimal symptoms, thus spirometry may underestimate his underlying pulmonary function. Continue on as needed albuterol MDI. (2) Personal history of nicotine dependence: Code(s): Z87.891 - Personal history of nicotine dependence Category: Medical Plan: Will obtain lung cancer screening CT chest. Orders: Orders CT lung screening Today Z87.891 - Personal history of nicotine dependence Coding Level of Care Code New Pt Level 4 (60733) Diagnoses COPD (chronic obstructive pulmonary disease) J44.9 Personal history of nicotine dependence Z87.891
--- OUTSIDE RECORDS SUMMARY | 2024-05-15 14:06 | XMS_ITS | Patient Health Record ---
Author Organization [facility] Address [address] [place] [address] Care Team Providers Care Transportation Department Supervisor Name Role Phone BIN ANDREW Primary Care Provider Adan Yuen Jr ALLERGIES No Known Allergies REASON FOR REFERRAL No Information MEDICATIONS Medication SIG (Take, Route, Frequency, Duration) Notes Start Date End Date Status Lisinopril 10 MG 1 tablet Orally Once a day Active Metoprolol Tartrate 25 MG 1 tablet Orall y Twice a day Active Omeprazole 20 MG TAKE 1 CAPSULE BY [facility] 30 MINUTES BEFORE MORNING MEAL EVERY DAY FOR 90 DAYS for 90 Active IMMUNIZATIONS Vaccine Route Administration Date Status Comme nts Influenza Unknown 03/25/2023 Administered SOCIAL HISTORY Tobacco Use: Social History Observation Description Date Details (start date - stop date) Former Smoker NA - NA Sex Assigned At : Social History Observation Description Sex Assigned At Unknown Tobacco Use/Smoking Question Answer Notes Patient is a former smoker How long has it been since you last smoked? 1-5 years PROBLEMS Problem Type ICD Code Onset Dates Problem Status W/U Status Risk SNOMED Code Notes Problem Colon cancer screening (Z12.11) Active confirmed 220012860 Problem Barretts esophagus without dysplasia (K22.70) Active confirmed [id number] Problem Garcia''s esophagus without dysplasia (K22.70) Active confirmed Garcia's esophagus ([id number]) Encounters Encounter Location Date Provider Diagnosis [facility] [address] [place] [id number] 05/20/2023 Adan Velasquez Jr PLAN OF TREATMENT Future Test Test Name Order Date UPPER GI ENDOSCOPY ANY OTHER TECHNIQUE 0 08/18/2014 COLONOSCOPY 08/18/2014 UPPER GI ENDOSCOPY 12/26/2017 UPPER GI ENDOSCOPY 04/24/2023 Next Appt Details Provider Name:Adan Jono nam Jr, 06/01/2024 10:40:00 AM, [address], [address], [place], [address], Insurance Providers Payer Name Payer Address Payer Phone Subscriber Number Group Number Insured Name Patient Relationship to Insured Coverage Start Date Coverage End Date [facility] [address] [place] [address] [id number] MORGAN PORTILLO Self - patient is the insured MEDICAL (GENERAL) HISTORY Medical History History ICD Code Garcia's esophagus, EGD 03/25 9, multilinear epithelium with no dysplasia. 5 year recall. hypertension colonoscopy 09/17/14, diverticulosis, fol low up to 08/2024 COPD Hyperlipidemia Surgical History Surgery Date(Month/Year)
--- OUTSIDE RECORDS SUMMARY | 2024-05-15 14:06 | XMS_ITS ---
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 (K22.70) Active confirmed Fuentes's esophagus ([id number]) Encounters Encounter Location Date Provider Diagnosis [facility] [address] [address] [place], [place] [phone] 05/14/2023 Adan Velasquez Jr Fuentes''s esophagus without dysplasia K22.70 ASSESSMENTS Encounter Date Diagnosis Assessment Notes Treatment Notes Treatment Clinical Notes 05/14/2023 Fuentes''s esophagus without dysplasia (ICD-10 - K22.70) PLAN OF TREATMENT Next Appt Details Provider Name:Adan nam Jr, 06/01/2024 10:40:00 AM, [address], [address], [place], [address],
--- OUTSIDE RECORDS SUMMARY | 2024-05-15 14:06 | XMS_ITS ---
Author Organization [facility] Address [address] [place] [address] Care Team Providers Care Blood Bank Laboratory Technician Name Role Phone BIN ANDREW Primary Care Provider Farrukh Velasquez Jr, Adan Amaya [phone] REASON FOR VISIT [facility] request for omeprazole caps MEDICATIONS Medication SIG (Take, Route, Fr equency, Duration) Notes Start Date End Date Status Omeprazole 20 MG 1 capsule 30 minutes before morning meal Orally Once a day for 90 day(s) 04/25/2023 Active Encounters Encounter Location Date Provider Diagnosis [facility] [address] [place] [address] 04/25/2023 Adan Velasquez Jr Barretts esophagus without dysplasia K22.70 ASSESSMENTS Encounter Date Diagnosis Assessment Notes Treatment Notes Treatment Clinical Notes 04/25/2023 Barretts esophagus without dysplasia (ICD-10 - K22.70) PLAN OF TREATMENT Medication Medication Name Sig Start Date Stop Date Notes Omeprazole 20 MG 1 capsule 30 minutes before morning meal Orally Once a day for 90 day(s) 04/25/2023 Omeprazole 20 MG 1 tablet Orally Once a day Next Appt Details Provider Name:Adan nam Jr, 06/01/2024 10:40:00 AM, [address], [address], [place], [address],
--- OUTSIDE RECORDS SUMMARY | 2024-05-15 14:06 | XMS_ITS ---
Author Organization [facility] Address [address] [place] [address] Care Team Providers Care Accounts Payable Payroll Coordinator Name Role Phone BIN ANDREW Primary Care Provider Farrukh Velasquez Jr, Adan Amaya REASON FOR VISIT pathology/ waiting on pt call back Encounters Encounter Location Date Provider Diagnosis [facility] [address] [place] [address] 05/20/2023 Adan Velasquez Jr PLAN OF TREATMENT Next Appt Details Provider Name:Adan nam Jr, 06/01/2024 10:40:00 AM, [address], [address], [place], [address],
== END 2024-05-15 15:07 | disposition home or self-care (01) ==
PROVIDERS: PCP Nurse Practitioner Family; Visit Provider Internal Medicine Pulmonary Disease
DX: J44.9 Chronic obstructive pulmonary disease, unspecified (principal); Z87.891 Personal history of nicotine dependence
CPT/HCPCS: 99214

== ENCOUNTER → 2024-05-15 13:36 | Outpatient (BNVA) | payer MEDICARE, SELFPAY | PROVIDERS: PCP Nurse Practitioner Family; Visit Provider Internal Medicine Pulmonary Disease | DX: J44.9 Chronic obstructive pulmonary disease, unspecified (principal); Z87.891 Personal history of nicotine dependence | CPT/HCPCS: 99212 ==

== ENCOUNTER 2024-06-17 10:11 | Inpatient (IN) | payer MEDICARE, SELFPAY ==
[2024-06-17] VITALS (10 sets, daily range): BP systolic 107–140; BP diastolic 57–76; PULSE 94–143; RESP 16–30; TEMP 36.3–37.2; O2SAT 88–96; BMI 27.5
--- NOTE | ~2024-06-17 | XR_ITS ---
EXAMINATION: XR CHEST 1 VIEW HISTORY: dyspnea COMPARISON: Comparison is made with the prior examination dated 02/24/2024. FINDINGS: Two AP portable views of the chest performed at 10:50 AM are submitted. There is patchy airspace opacity at the right lung base, consistent with pneumonia. The left lung is clear. There is no pleural effusion, pneumothorax, or pulmonary vascular congestion. The heart is normal in size. There is degenerative disc disease of the spine. XR/XR chest 1V IMPRESSION: Right basilar pneumonia. Follow-up is recommended to document resolution. Electronically signed by: Kishore Lam MD 06/17/2024 11:01 AM EDT
--- NOTE | 2024-06-17 10:26 | ECG_ITS ---
Test Reason : DYSPNEA Blood Pressure : */* mmHG Vent. Rate : 138 BPM Atrial Rate : 138 BPM P-R Int : 152 ms QRS Dur : 90 ms QT Int : 354 ms P-R-T Axes : 67 82 69 degrees QTcB Int : 536 ms Sinus tachycardia Otherwise normal ECG No previous ECGs available Referred By: Glenys Desir Electronically Signed By: DONNA CARPIO MD
--- NOTE | 2024-06-17 10:32 | ED_ITS ---
HPI - SOB/Dyspnea General Chief Complaint: Dyspnea Stated Complaint: Difficult breathing Time Seen by Provider: 06/17/24 10:24 Source: patient and old records reviewed Mode of arrival: ambulatory Limitations: no limitations History of Present Illness ED Provider: OLGA HOGAN Narrative: 74 yo male with COPD not on home O2 only uses rescue inhalers no current smoking, HTN, HLD, here with c/o 1 week cough sometimes green phlegm, chest tightness with cough, no fevers reported. He does have grandkids who could have gotten him sick. NO recent travel or procedures, no leg swelling. No response to rescue inhalers. He has not had any n/v/d. He arrived 88% on RA. At night he has been getting anxious for the past two days and cannot breathe and has to get up and feels shaky. MD elicited complaint: shortness of breath and cough Pertinent past history: COPD Onset (ago): week(s) (1) Context: other Timing: progressively worsening Severity: moderate Exacerbating factors: exertion, movement and coughing Relieving factors: oxygen, rest, bronchodilators and upright position Known history of: COPD Associated symptoms: cough and sputum production Treatment prior to arrival: bronchodilator Related Data Home Medications ?Medication ?Instructions ?Recorded ?Confirmed omeprazole 20 mg tablet,delayed 20 mg PO DAILY 05/09/23 02/24/24 release Previous Rx's ?Medication ?Instructions ?Recorded rosuvastatin 5 mg tablet 5 mg PO DAILY #90 tabs 11/27/23 albuterol sulfate 90 mcg/actuation 2 puff inhalation QID #8.5 grams 03/17/24 aerosol inhaler (Ventolin HFA) lisinopril 40 mg tablet 40 mg PO DAILY #90 tabs 04/20/24 Allergies Allergy/AdvReac Type Severity Reaction Status Date / Time No Known Allergies Allergy Verified 06/17/24 10:18 Review of Systems 2 Review of Systems: Constitutional : No Fever, No Chills ENT/Mouth : No Hoarseness, No sore throat, No Rhinorrhea Eyes: No Redness, No Discharge, No Vision Changes Cardiovascular : No Chest Pain, positive SOB, positive Dyspnea on Exertion, No Edema Respiratory : positive Cough, pos Sputum, positive Wheezing, Gastrointestinal : No Nausea, No Vomiting, No Diarrhea, No abdominal Pain Genitourinary : No Dysuria, No Hematuria Musculoskeletal : No joint pain, No Myalgias Skin : No rash Neuro : No Weakness, No Numbness, No Headache Psych : No anxiety, depression All other systems reviewed and are negative PMFSH Past Medical History Attestation statement: The following information was validated with the patient. Source: old records reviewed Medical History Diverticulosis Hyperlipidemia Barretts esophagus Hemorrhoids COPD (chronic obstructive pulmonary disease) Carotid bruit HTN (hypertension) Surgical History H/O colonoscopy History of esophagogastroduodenoscopy (EGD) Hx of tonsillectomy Family History Family History Father No problems noted. Mother No problems noted. Social History Social History Housing: House Patient Tobacco Use Status: Former Tobacco user Tobacco use type: Cigarette Years Smoked: 10 in 2014, started around age 14, 1.5PPD e-Cigarette/Vaping Use: Never Used Second Hand Smoke Exposure: Yes Advance Directives: No Advance Directives Information Provided: No service: No Current occupational status: retired Cognitive needs: No Hearing needs: No Vision needs: Yes Physical Exam 2 Vital Signs: Vital Signs: Last Vital Signs Temp 98.4 F 06/17/24 10:12 Pulse 128 H 06/17/24 10:40 Resp 26 H 06/17/24 10:40 BP 131/76 06/17/24 10:27 Pulse Ox 93 06/17/24 10:27 O2 Del Method Nasal Cannula 06/17/24 10:27 O2 Flow Rate 2 06/17/24 10:27 BMI result Body Mass Index 27.5 Appearance: Alert. Oriented X3. Mild acute distress. Eyes: Pupils equal, round and reactive to light. ENT: Pharynx normal. Neck: Normal inspection. Neck supple. CVS: tachycardic heart rate and rhythm. Pulses normal. Respiratory: Mild respiratory distress - tachypnea and retractions. Breath sounds diminished throughout with wheezes Abdomen: Soft and nontender. Skin: Skin warm and dry. Normal skin color. Normal skin turgor. Extremities: No lower extremity edema. No calf ttp Neuro: Oriented X 3. No motor deficit. No sensory deficit. CN2-12 intact Medications Administered Generic Name Dose Route Start Last Admin Trade Name Freq PRN Reason Stop Dose Admin Magnesium Sulfate 2 gm in 50 mls @ 25 mls/hr 06/17/24 10:06/17/24 10:44 Magnesium Sulfate/H2o IV 06/17/24 12:25 25 mls/hr ONCE ONE Administration Discontinued Medications Generic Name Dose Route Start Last Admin Trade Name Freq PRN Reason Stop Dose Admin Ceftriaxone Sodium 1 gm 06/17/24 10:06/17/24 10:40 Ceftriaxone Sodium 1 Gm Vial IVPUSH 06/17/24 10:27 1 gm ONCE ONE Administration Levalbuterol HCl 3.75 mg/ 0 mg 06/17/24 10:36 06/17/24 10:38 Ipratropium Robert Lee 0.5 mg INHALE 06/17/24 10:37 1 dose ONCE ONE Administration Methylprednisolone Sodium Succinate 60 mg 06/17/24 10:06/17/24 10:42 Methylprednisolone Sod Succ 125 Mg/2 Ml Vial IVPUSH 06/17/24 10:27 60 mg ONCE ONE Administration Medical Decision Making Medical Decision Making [facility] Narrative: 74 yo male with COPD not on home O2 only uses rescue inhalers no current smoking, HTN, HLD, here with c/o URI x 1 week with sputum production and hypoxia on arrival - his symptoms seem more infectious I do not suspect VTE or ACS will need labs, EKG, IV steroids, IV magnesium, nebs and empiric abx. Possible COPD, pneumonia, CHF. Patient is hypoxic as well on arrival - VBG ordered. Differential Diagnosis Differential Diagnoses: The differential diagnosis associated with the presentation includes pneumonia, viral syndrome, COPD exacerbation Admission/Observation Consideration of admission/observation: Escalation of care including admission/observation considered admit for hypoxia and pneumonia Lab Data [facility] Lab Attestation statement: I reviewed the patient's lab results. 06/17/24 10:31 06/17/24 10:31 Labs: Lab Results 06/17/24 06/17/24 06/17/24 Range/Units 10:31 10:32 10:39 WBC 11.1 H (4.8-10.8) X10*3/uL RBC 5.13 (4.60-5.80) X10*6/uL Hgb 15.3 (14.0-18.0) g/dl Hct 44.0 (42.0-52.0) % MCV 85.8 (80.0-98.0) fL MCH 29.8 (27.0-33.0) pg MCHC 34.8 (31.0-36.0) g/dl RDW 12.1 (11.0-16.0) % Plt Count 232 (160-400) X10*3/uL MPV 8.7 L (9.4-12.4) fL Immature Gran % (Auto) 0.4 (0.0-0.4) % Neut % (Auto) 88.0 H (45-73) % Lymph % (Auto) 4.1 L (20-40) % [place] % (Auto) 6.3 (2-11) % Eos % (Auto) 0.9 (0-4) % Baso % (Auto) 0.3 (0-2) % Lymph # (Auto) 0.5 L (1.2-4.9) X10*3/uL [place] # (Auto) 0.7 (0.1-1.2) X10*3/uL Eos # (Auto) 0.1 (0.0-0.4) X10*3/uL Baso # (Auto) 0.0 (0.0-0.2) X10*3/uL Abs Immat Gran (auto) 0.04 H (0.00-0.03) X10*3/uL Absolute Neuts (auto) 9.7 H (2.0-8.3) x10*3/uL Absolute Nucleated RBC 0.000 (0.0-0.012) X10*3/uL Nucleated RBC % (auto) 0.0 (0.0-0.2) /100WBC VBG pH 7.45 H 7.45 H (7.32-7.43) VBG pCO2 41 41 mmHg VBG pO2 54 54 mmHg VBG HCO3 29 H 29 H (22-26) mmol/L VBG O2 Saturation 87.0 87.0 % VBG Base Excess 5.0 5.0 mmol/L Sodium 139 (135-145) mmol/L Potassium 4.0 (3.3-5.1) mmol/L Chloride 105 (96-108) mmol/L Carbon Dioxide 27 (22-29) mmol/L Anion Gap 11 L (12-20) BUN 11 (9-16) mg/dL Creatinine 0.77 (0.5-1.4) mg/dL Estim Creat Clear Calc 79.6 Estimated GFR > 60 Random Glucose 116 H (60-115) mg/dL Lactic Acid 1.5 (0.5-2.0) mmol/L Calcium 9.6 (8.4-10.2) mg/dL Magnesium 1.4 L* (1.6-2.6) mg/dL Total Bilirubin 0.9 (0.0-1.0) mg/dL Direct Bilirubin 0.3 (0.0-0.5) mg/dL AST 19 (5-37) U/L ALT 17 (0-40) U/L Alkaline Phosphatase 83 (39-117) U/L Troponin I High Sens 8.5 (<3.5-35.0) ng/L C-Reactive Protein 4.57 H (< or = 0.50) mg/dL B-Natriuretic Peptide 17 (<100) pg/mL Total Protein 7.1 (6.5-8.0) g/dL Albumin 4.2 (3.5-5.0) g/dL Influenza Type A (PCR) NEGATIVE (Negative) Influenza Type B (PCR) NEGATIVE (Negative) RSV RNA Qual (PCR) NEGATIVE (Negative) SARS-CoV-2 RNA (RT-PCR) NEGATIVE (Negative) Independent Interpretation I performed an independent interpretation of an: EKG and Plain X-Ray (RLL pneumonia) Interpretation: Rate: 138 Rhythm: sinus tach [place]: normal Normal P waves. Normal MILAD[place]. Normal QRS complex. ST T wave : no EDUIN qTC: 536 prior studies: no acute ischemia The study has been interpreted contemporaneously by me. . Radiology Impression Discussion of test interpretation with radiology: I have reviewed the radiologist's reading. Independent Historian Clinical information obtained from an independent historian. History obtained from or confirmed by: Spouse External Record Review External record reviewed: Outpatient record Critical Care Time Critical Care Time Critical Care Time: Yes Total Critical Care Time: 40 Attestation: IV magnesium, hypoxia intervention, admission, review of records I attest to this time spent taking care of the patient Discharge Plan Discharge Clinical Impression: Acute exacerbation of chronic obstructive airways disease, Hypoxia, Right lower lobe pneumonia, Prolonged QT interval, Hypomagnesemia Patient Disposition: Admitted As Inpatient Print Language: Kazakh
[2024-06-17] MEDS: levalbuterol HCL 3.75 MG, Ipratropium Bromide 0.5 MG INHALE (10:38)
[2024-06-17 10:39] LABS: MANUAL DIFF FLAG NO
[2024-06-17] MEDS: cefTRIAXone sodium 1 GM VIAL IVPUSH (10:40)
[2024-06-17 10:42] LABS: Venous Blood Gas Refer to POC result
[2024-06-17] MEDS: methylPREDNISolone Sod Succ 125 MG/2 ML VIAL 60 MG IVPUSH (10:42)
[2024-06-17 10:44] LABS: Basophils Percent Auto 0.3 % (0-2); Eosinophils Absolute Auto 0.1 X10*3/uL (0.0-0.4); Eosinophils Percent Auto 0.9 % (0-4); Hemoglobin 15.3 g/dl (14.0-18.0); Imm Gran Abs Auto 0.04 X10*3/uL (0.00-0.03); Imm Gran Pct Auto 0.4 % (0.0-0.4); Lymphocytes Absolute Auto 0.5 X10*3/uL (1.2-4.9); Lymphocytes Percent Auto 4.1 % (20-40); Mean Corpuscular HGB Conc 34.8 g/dl (31.0-36.0); Mean Corpuscular Hemoglobin 29.8 pg (27.0-33.0); Mean Corpuscular Volume 85.8 fL (80.0-98.0); Mean Platelet Volume 8.7 fL (9.4-12.4); Monocytes Absolute Auto 0.7 X10*3/uL (0.1-1.2); Monocytes Percent Auto 6.3 % (2-11); Neutrophils Absolute Auto 9.7 x10*3/uL (2.0-8.3); Platelet Count 232 X10*3/uL (160-400); Red Blood Count 5.13 X10*6/uL (4.60-5.80); Red Cell Distribution Width 12.1 % (11.0-16.0); White Blood Count 11.1 X10*3/uL (4.8-10.8)
[2024-06-17 10:44] LABS: VBG pCO2 41 mmHg; VBG pH 7.45 (7.32-7.43); VBG pO2 54 mmHg
[2024-06-17] MEDS: Magnesium Sulfate/H2O 2 GM/50 ML PIGGYBACK IV (10:44)
[2024-06-17 10:45] LABS: VBG HCO3 29 mmol/L (22-26)
[2024-06-17 10:53] LABS: VBG HCO3 29 mmol/L (22-26); VBG pCO2 41 mmHg; VBG pH 7.45 (7.32-7.43); VBG pO2 54 mmHg
[2024-06-17 11:05] LABS: Troponin-I High Sensitivity 8.5 ng/L (<3.5-35.0)
[2024-06-17 11:06] LABS: B Type Natriuretic Peptide 17 pg/mL (<100)
[2024-06-17 11:08] LABS: Lactic Acid 1.5 mmol/L (0.5-2.0)
[2024-06-17 11:17] LABS: Alanine Aminotransferase 17 U/L (0-40); Albumin Level 4.2 g/dL (3.5-5.0); Alkaline Phosphatase 83 U/L (39-117); Anion Gap 11 (12-20); Aspartate Amino Transferase 19 U/L (5-37); Bilirubin Direct 0.3 mg/dL (0.0-0.5); Bilirubin Total 0.9 mg/dL (0.0-1.0); Blood Urea Nitrogen 11 mg/dL (9-16); C Reactive Protein 4.57 mg/dL (< or = 0.50); Calcium 9.6 mg/dL (8.4-10.2); Carbon Dioxide 27 mmol/L (22-29); Chloride 105 mmol/L (96-108); Creatinine Clr Calc Pharmacy 79.6; Estimated Glomerular Filt Rate > 60; Glucose Random 116 mg/dL (60-115); Influenza A PCR NEGATIVE (Negative); Influenza B PCR NEGATIVE (Negative); Magnesium 1.4 mg/dL (1.6-2.6); Resp Syncy Virus RNA Qual PCR NEGATIVE (Negative); SARS COV2 PCR INHOUSE NEGATIVE (Negative); Sodium 139 mmol/L (135-145); Total Protein 7.1 g/dL (6.5-8.0)
[2024-06-17 11:19] LABS: Procalcitonin 0.09 ng/mL
[2024-06-17] MEDS: Doxycycline Hyclate 100 MG in 0.9 % Sodium Chloride 250 ML 166.67 MG IV (11:39)
--- NOTE | 2024-06-17 11:59 | PHA.MEDREC ---
Addendum entered by Ellen Adames RPh 06/17/24 12:10: reviewed by [facility]. Original Note: Pharmacy Consult ? Medication Reconciliation Pharmacy has completed the medication reconciliation. Spoke with patient and patient at bedside who was able to confirm his medications. The patient confirmed he last took his medications yesterday and was not able to take any this morning.
--- NOTE | 2024-06-17 12:22 | P.HPHOSP_ITS ---
History of Present Illness Date of Service: 06/17/24 Attending physician on admission: Corwin Fernandez Chief Complaint: Dyspnea Patient is a 74-year-old male with past medical history hypertension, hyperlipidemia, GERD, possible esophageal stricture/ fuentes's esophagus, vitamin-D deficiency, COPD with past history of tobacco use where patient completed cessation approximately 20 years prior and smoked 1 pack per day for 25 years presents to the emergency room with complaints of worsening shortness of breath especially at rest where patient was not able to lie on his back or side. Patient also noted a productive cough with green-yellow sputum. Patient denies any fever, chills chest pain, nausea, vomiting, diarrhea, constipation. Pt denies ALANIS, aspiration issues but has been having issues with pills and food presenting with sensation that the items get stuck going down. Pt was seen by specialist recently and has outpatient CT scan coming up in the next month. ABG 7.45 41 54 29 BE 5.0 BNP 17 CRP 4.57 Sepsis protocol followed noting evidence of PNA on CXR, tachycardia, hypoxia on admission, CRP. Patient denies any recent travel. Patient is around his grandchildren very often and in the last 2 weeks, 1 of his grandchildren was not feeling well with upper respiratory symptoms. All viral testing is negative for RSV, flu a and B and COVID. Chest x-ray very specific for right lower lobe pneumonia but no evidence of pulmonary congestion, pleural effusion or pneumothorax. Patient is tachycardic in the 140s. Patient is in a sinus tach rhythm (via ECG and tele) denying any chest pain. Qtc 536, MG 1.4, pt receiving 2 gms of MG in ED. Reviewed this with the ER physician Dr. Desir and patient will receive 1 L of fluid and IV Tylenol as it is believed the tachycardia secondary to Xopenex nebulizer treatment provided in the ED. it does not appear that the patient was tachycardic on arrival. Patient is also exhibiting mild tremors in the upper extremities, new since respiratory tx. Patient denies any anxiety related to his current condition. Upon collaboration with ED provider we will not be providing Lopressor at this time. Pt rochelle be monitored to see if HR comes down on its own per Dr. Desir. 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 Patient did not wear a respirator but did wear a facial mask. Patient denies any history of sarcoidosis or chronic lung problems including emphysema. Patient has seen a board layer in the recent past but can not remember the doctor's name. Pt had PFTs completed March 2024: Read by Dr Blas - Diffusion capacity: Mildly decreased, corrects to normal after adjustment for alveolar ventilation. Impression: Severe to very severe obstructive ventilatory defect with positive bronchodilator response. Increased residual volume suggests air trapping. Decreased diffusion capacity suggests emphysema Pt currently taking Lisinopril 40 mgs daily,. omeperazole and rosuvastatin along with MVI. Case reviewed with Dr. Fernandez Review of Systems 2 Review of Systems: Patient currently experiencing shortness of breath at rest, denies chest pain, nausea, vomiting, current issues with swallowing, abdominal pain, diarrhea or lower leg pain. Patient denies any recent unexplained weight loss, hemoptysis but does have a productive cough of green-yellow sputum for the last 3 days. Patient denies any current fever, chills, night sweats, or myalgias. Patient denies any issues with urination including burning, frequency or hesitancy. Patient denies any recent falls or trauma. Patient denies any current allergies to food or medication. Yes all other systems are reviewed and are negative [facility] Medical History (Updated 06/17/24 @ 14:25 by ROSA Lima) Diverticulosis Hyperlipidemia Barretts esophagus Hemorrhoids COPD (chronic obstructive pulmonary disease) Carotid bruit HTN (hypertension) Cognitive capacity: intact, pt is alert and orientated Functional capacity: independent ambulation Family History Father No problems noted. Mother No problems noted. Pertinent family history: Mother passed from stroke in her late 60's Father passed in his 80s from natarual causes. Surgical History H/O colonoscopy History of esophagogastroduodenoscopy (EGD) Hx of tonsillectomy Social History Housing: House Patient Tobacco Use Status: Former Tobacco user Tobacco use type: Cigarette Years Smoked: 10 in 2015, started around age 14, 1.5PPD e-Cigarette/Vaping Use: Never Used Second Hand Smoke Exposure: Yes Advance Directives: No Advance Directives Information Provided: No service: No Current occupational status: retired Cognitive needs: No Hearing needs: No Vision needs: Yes Ebola Risk: Travel/Contact With Anyone From Affected Area/s: No Has Patient Experienced Ebola Symptoms: No Meds Allergies Allergy/AdvReac Type Severity Reaction Status Date / Time No Known Allergies Allergy Verified 06/17/24 10:18 Active Medications: Current Medications Magnesium Sulfate (Magnesium Sulfate/H2o) 2 gm in 50 mls @ 25 mls/hr IV ONCE ONE Stop: 06/17/24 12:25 Last Admin: 06/17/24 10:44 Dose: 25 mls/hr Doxycycline Hyclate 100 mg/ (Sodium Chloride) 250 mls @ 166.67 mls/hr IV ONCE ONE Stop: 06/17/24 12:45 Last Admin: 06/17/24 11:39 Dose: 166.67 mls/hr Home Medications ?Medication ?Instructions ?Recorded ?Confirmed ?Last Taken ?Type omeprazole 20 mg tablet,delayed 20 mg PO DAILY@0630 05/09/23 06/17/24 06/16/24 History release albuterol sulfate 90 mcg/actuation 2 puff inhalation QID PRN 06/17/24 06/17/24 Unknown History aerosol inhaler (Ventolin HFA) Shortness Of Breath Or Wheezing cyanocobalamin (vitamin B-12) 1,000 mcg PO DAILY 06/17/24 06/17/24 06/16/24 History 1,000 mcg tablet (Vitamin B-12) [id number] 300 mcg-K 60 1 tab PO DAILY 06/17/24 06/17/24 06/16/24 History mcg-lycop 600 mcg-lutein 300 mcg tablet (Centrum Silver Men) Physical Exam 2 Vital Signs and Narrative: Vital Signs: Last Vital Signs Temp 98.9 F 06/17/24 11:13 Pulse 137 H 06/17/24 11:13 Resp 27 H 06/17/24 11:13 BP 140/71 H 06/17/24 11:13 Pulse Ox 91 L 06/17/24 11:13 O2 Del Method Nasal Cannula 06/17/24 11:13 O2 Flow Rate 2 06/17/24 11:13 BMI result Body Mass Index 27.5 Alert and orientated X3, able to give good history, poor recall regarding outpatient provider names. Spouse also present and can't recall recent information. Neuro: CN II-X11 intact, no deficits, visual acuity intact noted mild hand tremor only after breathing tx EYES: PERRLA, EOM intact, Glasses on ENT: hearing intact, no obvious issues with swallowing, uvula midline, lips moist, nares patent no epistaxis. Dentures in place upper and lower Cardiac: S1 S2 RRR, tachycardic 140, no murmur, no JVD, no edema in Lower ext Pulmonary: lungs diminished B, R >L no rhonchi or wheezing noted Abdominal: BS active in all 4 quadrants, no guarding, tenderness, rebounding MSK: strength 5/5 upper and lower extremities : no CVA tenderness no bladder distension Extremities: no edema in lower extremities, PT and DP pulses palpable +2 Psych: mood stable, judgement and insight good Skin: no open wounds Results Labs 06/17/24 10:31 06/17/24 10:31 Labs: Laboratory Results - last 24 hr 06/17/24 06/17/24 06/17/24 10:31 10:32 10:39 MCV 85.8 MCH 29.8 MCHC 34.8 RDW 12.1 Plt Count 232 MPV 8.7 L Immature Gran % (Auto) 0.4 Neut % (Auto) 88.0 H Lymph % (Auto) 4.1 L [place] % (Auto) 6.3 Eos % (Auto) 0.9 Baso % (Auto) 0.3 Lymph # (Auto) 0.5 L [place] # (Auto) 0.7 Eos # (Auto) 0.1 Baso # (Auto) 0.0 Abs Immat Gran (auto) 0.04 H Absolute Neuts (auto) 9.7 H Absolute Nucleated RBC 0.000 Nucleated RBC % (auto) 0.0 VBG pH 7.45 H 7.45 H VBG pCO2 41 41 VBG pO2 54 54 VBG HCO3 29 H 29 H VBG O2 Saturation 87.0 87.0 VBG Base Excess 5.0 5.0 Anion Gap 11 L Estim Creat Clear Calc 79.6 Estimated GFR > 60 Random Glucose 116 H Lactic Acid 1.5 Calcium 9.6 Magnesium 1.4 L* Total Bilirubin 0.9 Direct Bilirubin 0.3 AST 19 ALT 17 Alkaline Phosphatase 83 C-Reactive Protein 4.57 H B-Natriuretic Peptide 17 Total Protein 7.1 Albumin 4.2 Procalcitonin 0.09 Influenza Type A (PCR) NEGATIVE Influenza Type B (PCR) NEGATIVE RSV RNA Qual (PCR) NEGATIVE SARS-CoV-2 RNA (RT-PCR) NEGATIVE Imaging Radiologist's Impressions: Impressions Chest X-Ray 06/17/24 10:26 IMPRESSION: Right basilar pneumonia. Follow-up is recommended to document resolution. Electronically signed by: Kishore Lam MD 06/17/2024 11:01 AM EDT RP Assessment and Plan (1) Acute hypoxic respiratory failure: Status: Acute (2) Sepsis: Start date: 06/17/24 Qualifiers: Acute respiratory failure type: with hypoxia Severe sepsis shock status: without septic shock Status: Acute (3) Right lower lobe pneumonia: Qualifiers: Pneumonia type: due to unspecified organism Qualified Code(s): J18.9 - Pneumonia, unspecified organism Status: Acute (4) Tachycardia: Status: Acute (5) Acute exacerbation of chronic obstructive airways disease: Status: Acute (6) Prolonged QT interval: Status: Acute (7) Hypomagnesemia: Status: Acute (8) Vitamin D deficiency: Status: Chronic (9) Barretts esophagus: Qualifiers: Fuentes's esophagus type: without dysplasia Qualified Code(s): K22.70 - Fuentes's esophagus without dysplasia Status: Chronic (10) GERD (gastroesophageal reflux disease): Qualifiers: Esophagitis presence: without esophagitis Qualified Code(s): K21.9 - Gastro-esophageal reflux disease without esophagitis Status: Chronic (11) HTN (hypertension): Qualifiers: Hypertension type: primary hypertension Qualified Code(s): I10 - Essential (primary) hypertension Status: Chronic Plan Patient is a 74-year-old male with past medical history of hypertension, hyperlipidemia, Fuentes's esophagus, GERD, COPD/emphysema being admitted for acute hypoxic respiratory failure, sepsis secondary to a right lower lobe pneumonia. Patient has started ceftriaxone and doxycycline for at least 7 days of antibiotic therapy. Patient also noted to be in sinus tach, 140s after Xopenex nebulizer treatment. Patient is receiving 1 L of LR as well as IV Tylenol. Nebulizers will now include ipratropium and budesonide. We will avoid albuterol and Xopenex. Currently avoiding the use of Lopressor and will monitor patient's heart rate via telemetry. Patient is chest pain-free. EKG is negative for any skin changes. Patient has a prolonged QTC of 536 with a low magnesium of 1.4. Patient did receive 2 g of magnesium in the ED. we will check EKG and magnesium level in the a.m. Patient is being admitted to telemetry. 1. Acute Hypoxic Respiratory Failure Pt is stable on oxygen, does not use oxygen at home Secondary to RLL PNA, tx started for PNA Continuous POX, telemetry Pt does have severe COPD, follows as an outpatient with pulmonogist, dx with severe obstructive disease, will likely need at least rescue inhaler for DC 2. Sepsis Pt presented with hypoxia, 88% RA, rebounded to 94% with oxygen and nebulizer CRP elevated 4.57, leukocytosis of 11, pt afebrile Tachy seconary to xopenex, 1L of LR provided with IV tylenol BC pending Pt is on ceftriaxone and doxycyline, unable to obtain sputum sample prior to starting ABX. Pt has had productive cough (green/ yellow) with RLL PNA on XRAY Continuous pox and tele ordered 3. RLL PNA/ CAP RLL PNA noted on CXR, productive cough green/ yellow sputum Ceftriaxone and Doxycycline ordered X 7 days Strep and Legionaries pending Unable to collect sputum prior to ABX starting Oxygen, wean as tolerated, continuous pulse ox Nebs to include ipratropium and budesonide as pt had a reaction to Xopenex to include tachycardia and mild hand tremors IS 4. Sinus tachycardia Likely secondary to Xopenex provided in ED ECG ST no ischemic changes, pt is chest pain free 1L LR provided in ED, avoiding use of Lopressor IV for now Nebs: avoiding use of albuterol currently 5. 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 Patient will be on ipratropium and budesonide Methylprednisolone 60 mg IV started in the ED. Continue methylprednisolone 40 mg IV daily and wean. 6. Prolonged Qtc QTC 536, magnesium 1.4, no evidence of torsades noting patient has sinus tachycardia after exposure to Xopenex 2 g of magnesium provided in the ED, check magnesium level and EKG in the a.m.. Patient will be on telemetry for admission. Patient is not on any medications prescription gould that prolonged QTC. 7. Hypomagnesemia Magnesium 1.4, noted prolonged QTC. Patient is receiving 2 g of IV magnesium. Check level in the a.m.. Telemetry. 8. Vit D deficiency We will check level in a.m.. Patient does not currently take vitamin-D. 9. Fuentes's esophagus / GERD Patient reports at times medications and food can sometimes get stuck in the middle of his chest. Patient has seen a specialist recently and is supposed to have an outpatient CT scan in the next month. Speech therapy evaluation requested. Do not suspect aspiration. Patient will be permitted to have a diet as he did well with swallowing at the bedside on admission Omeprazole continued. 10. HTN Blood pressure stable. Patient usually takes lisinopril 40 mg daily. We will hold this medication and observe patient and resume likely in the a.m.. Renal function is stable Patient is being admitted with acute hypoxic respiratory failure, sepsis without septic shock, right lower lobe pneumonia to [facility] telemetry. Patient will require 48-72 hours of hospital stay due to acute issues including hypoxia and pneumonia. Case reviewed with Dr. Fernandez. Total time managing care of this patient today: 50 minutes. Quality Stroke Does the patient have a stroke diagnosis?: No Reason for No Anti-thrombotic by Day Two: N/A - Med Ordered VTE Prior VTE?: No VTE Risk Level:: Medical - moderate - high VTE Device Contraindication: N/A - Device Ordered VTE Drug Contraindication: N/A - Med Ordered
[2024-06-17] MEDS: levalbuterol HCL 1.25 MG/3 ML VIAL.NEB INHALE (12:27)
[2024-06-17] MEDS: Enoxaparin Sodium 40 MG/0.4 ML SYRINGE SUBCUT (13:29)
[2024-06-17] MEDS: Acetaminophen 1,000 MG/100 ML PIGGYBACK 400 MG IV (13:29)
[2024-06-17] MEDS: Lactated Ringers 1,000 ML 999 ML IV (13:30)
[2024-06-17] MEDS: guaiFENesin 200 MG/10 ML 10 ML LIQUID PO (13:30)
--- NOTE | 2024-06-17 14:50 | PC.NURSE ---
Speech therapy at the bedside to perform a swallow evaluation secondary to a history of Garcia's esophagus
[2024-06-17] MEDS: Ipratropium Bromide 0.5 MG/2.5 ML SOLUTION INHALE ×2 (15:43→19:33)
--- NOTE | 2024-06-17 16:20 | MHC.SL.SWA ---
Speech Pathologist Impression: Oropharyngeal swallow WNL; pt has hx of Garcia's Esophagus, [facility] GI consult, regular diet to allow pt choices Risk of Aspiration Due to: History of Pneumonia Dysphasia Diet Status: Liquid Consistency and Strategies for Safe Swallow: Liquid Intake Recommendation: Thin Liquid Intake Strategies: Small Sips Solid Food Consistency: Dietary Recommendations: Regular Additional Modifications to Solid Foods: Oral Medication Intake: Whole with Liquid Please contact the pharmacy regarding appropriate crushable or liquid drug formulations that are available whenever modified delivery is recommended. Compensatory Strategies and Precautions to be Taken for Safe Swallow: Sitting Upright (90 deg) Avoid Specific Foods Supervision While Eating and Drinking for Safe Swallow: None Needed Foods to Avoid: Swallowing Recommended Treatments: Compens. Strategy Educat. Recommendation for Speech: Comment: Pt presents with adequate oropharyngeal coordination across first two phases of swallow with thins and regular solids. No overt s/s of aspiration or regurgitation observed during bedside swallow evaluation. Pt endorses hx of esophageal involvement, MD aware. [facility] GI consultation, regular diet with thin liquids to allow pt choices. EVALUATION ASSISTANT available for follow up as indicated. Pt verbalized understanding of EVALUATION ASSISTANT recommendations and agrees with POC. Frequency/Duration: Date Range for Service Req: Timeline to reassess: [employer] Heat Welder Clinican/Clinical Fellow: No Supervisory Statement: I have reviewed and agree with the student/clinical fellow's documentation: N/A Speech Language Pathologist: Danika Hudson M.S., [facility]-EVALUATION ASSISTANT
--- NOTE | 2024-06-17 18:12 | P.EN_ITS ---
Event Note Date of Service: 06/17/24 Event Note: Addendum to history and physical by the advanced practice provider, JOHN Brar I interviewed and examined the patient. I discussed their presentation and management with the JESSICA. I reviewed the history and physical and agree with the documentation, with the following additions and corrections: 74yo M with recently diagnosed severe COPD/emphysema here with dyspna + productive cough x 4 days no fever hypoxia to 88% septic by virtue of tachycardia/tachypnea; lactate 1.5 PCT 0.09 noted to have RLL PNA plan admit to tele [given tachycardia- improving as albuterol wears off] for hypoxia due to COPD + PNA, give ceftriaxone/doxy, methlyprednisolone/ipratrop ium, follow BCx, wean O2 as tolerated replete Mg [was 1.4] Time Spent With Patient Time: Total time managing care of this patient today ____ minutes.
[2024-06-17] MEDS: Budesonide 0.5 MG/2 ML AMPUL.NEB INHALE (19:33)
[2024-06-17] MEDS: Sennosides 8.6 MG TABLET 17.2 MG PO (22:17)
[2024-06-18] VITALS (10 sets, daily range): BP systolic 101–138; BP diastolic 62–81; PULSE 81–99; RESP 16–20; TEMP 36.2–37.2; O2SAT 90–98
--- NOTE | 2024-06-18 | ECG_ITS ---
Test Reason : tachy Blood Pressure : */* mmHG Vent. Rate : 84 BPM Atrial Rate : 84 BPM P-R Int : 176 ms QRS Dur : 98 ms QT Int : 336 ms P-R-T Axes : 63 57 41 degrees QTcB Int : 397 ms Poor data quality with Baseline wander Possible Sinus rhythm with marked sinus arrhythmia Otherwise normal ECG When compared with ECG of 17-Jun-2024 14:18, No significant change was found Referred By: Vanessa Brar Electronically Signed By: DONNA CARPIO MD
--- NOTE | 2024-06-18 01:09 | PC.NURSE ---
Assumed care of this patient at 19:00. Please see shift assessment, tasks, and MAR for full details. Handoff report given to oncoming RN at 23:15.
[2024-06-18] MEDS: Doxycycline Hyclate 100 MG in 0.9 % Sodium Chloride 250 ML 166.67 MG IV ×2 (01:42→13:02)
[2024-06-18] MEDS: 0.9 % Sodium Chloride Flush 3 ML SYRINGE IVFLUSH ×2 (01:47→08:33)
[2024-06-18] MEDS: Omeprazole 20 MG CAPSULE.DR PO (06:03)
[2024-06-18 06:31] LABS: MANUAL DIFF FLAG NO
[2024-06-18 06:36] LABS: Basophils Percent Auto 0.1 % (0-2); Hematocrit 36.9 % (42.0-52.0); Hemoglobin 12.6 g/dl (14.0-18.0); Imm Gran Abs Auto 0.16 X10*3/uL (0.00-0.03); Imm Gran Pct Auto 1.1 % (0.0-0.4); Lymphocytes Absolute Auto 0.8 X10*3/uL (1.2-4.9); Lymphocytes Percent Auto 5.5 % (20-40); Mean Corpuscular HGB Conc 34.1 g/dl (31.0-36.0); Mean Corpuscular Hemoglobin 29.6 pg (27.0-33.0); Mean Corpuscular Volume 86.8 fL (80.0-98.0); Mean Platelet Volume 9.1 fL (9.4-12.4); Monocytes Absolute Auto 0.9 X10*3/uL (0.1-1.2); Monocytes Percent Auto 5.9 % (2-11); Neutrophils Absolute Auto 13.3 x10*3/uL (2.0-8.3); Neutrophils Percent Auto 87.4 % (45-73); Platelet Count 223 X10*3/uL (160-400); Red Blood Count 4.25 X10*6/uL (4.60-5.80); Red Cell Distribution Width 12.2 % (11.0-16.0); White Blood Count 15.2 X10*3/uL (4.8-10.8)
[2024-06-18 06:52] LABS: Alanine Aminotransferase 16 U/L (0-40); Albumin Level 3.4 g/dL (3.5-5.0); Alkaline Phosphatase 67 U/L (39-117); Anion Gap 10 (12-20); Aspartate Amino Transferase 18 U/L (5-37); Bilirubin Total 0.5 mg/dL (0.0-1.0); Blood Urea Nitrogen 13 mg/dL (9-16); Carbon Dioxide 27 mmol/L (22-29); Chloride 106 mmol/L (96-108); Creatinine Clr Calc Pharmacy 97.3; Estimated Glomerular Filt Rate > 60; Glucose Random 126 mg/dL (60-115); Magnesium 1.8 mg/dL (1.6-2.6); Potassium 4.4 mmol/L (3.3-5.1); Sodium 139 mmol/L (135-145); Total Protein 6.1 g/dL (6.5-8.0)
[2024-06-18] MEDS: Budesonide 0.5 MG/2 ML AMPUL.NEB INHALE ×2 (07:48→19:04)
[2024-06-18] MEDS: Ipratropium Bromide 0.5 MG/2.5 ML SOLUTION INHALE ×4 (07:48→19:04)
--- NOTE | 2024-06-18 08:00 | ECG_ITS ---
Test Reason : RYTHM CHECK Blood Pressure : */* mmHG Vent. Rate : 117 BPM Atrial Rate : 117 BPM P-R Int : 180 ms QRS Dur : 96 ms QT Int : 306 ms P-R-T Axes : 64 54 50 degrees QTcB Int : 426 ms Sinus tachycardia Otherwise normal ECG When compared with ECG of 17-Jun-2024 10:57, No significant change was found Referred By: Vanessa Brar Electronically Signed By: DONNA CARPIO MD
[2024-06-18] MEDS: Atorvastatin Calcium 20 MG TABLET PO (08:29)
[2024-06-18] MEDS: Cyanocobalamin (Vitamin B-12) 1,000 MCG TABLET 1000 MCG PO (08:29)
[2024-06-18] MEDS: lisinopriL 20 MG TABLET PO (08:29)
--- NOTE | 2024-06-18 08:41 | MHC.CM.PN ---
CM met with Patient at bedside and addressed IMM with him, providing Patient with the original and a copy has been placed on the chart. Patient lives in a house with his /HCP/Soraya who will transport to home at time of dc. Patient is functionally independent and home self care is his goal. CM has initiated and will follow for dc planning. PCP is Dr. Micah Gómez.
--- NOTE | 2024-06-18 09:35 | HO.PM.IMPN ---
Subjective Subjective Date of Service: 06/18/24 Interval History: Patient is hospital day 1 status post admission for acute hypoxic respiratory failure secondary to right lower lobe pneumonia. Patient has been able to wean from nasal cannula to room air this morning. Patient is using incentive spirometer and able to achieve 1.5-2 L with each breath. Patient educated on known chronic severe obstructive lung disease secondary to PFTs done March 2024. Patient reports mild congestion but denies chest pain or shortness of breath at rest or with exertion. Patient's appetite is improving. Tachycardia appears to have resolved with an apical pulse of 88. EKG earlier this morning noted a heart rate of 117 sinus tach. Patient is not normally on beta-tammy. And patient is not receiving albuterol. Patient's lisinopril was reduced to 20 mg daily noting blood pressure. Patient normally on 40 mg a day. Plan is for patient to improve in the next 24 hours with possible discharge in the morning. Patient was seen by speech therapy and passed the swallow evaluation with known Garcia's esophagus and GERD. Review of Systems Patient denies chest pain shortness of breath at rest, abdominal pain, nausea, diarrhea, headache, lower calf pain. Physical Exam Vital Signs: Vital Signs: Last Vital Signs Temp 97.8 F 06/18/24 07:15 Pulse 86 06/18/24 07:52 Resp 18 06/18/24 07:52 BP 101/62 06/18/24 07:15 Pulse Ox 98 06/18/24 07:15 O2 Del Method Nasal Cannula 06/18/24 07:15 O2 Flow Rate 2 06/18/24 07:15 BMI result Body Mass Index 27.5 Alert and orientated X3 Neuro: CN II-X11 intact, no deficits, visual acuity intact EYES: PERRLA, EOM intact ENT: hearing intact, no issues with swallowing, uvula midline, lips moist, nares patent no epistaxis Cardiac: S1 S2 RRR, no murmur, no JVD, no edema in Lower ext Pulmonary: lungs diminished B, wheezing noted upper lobes on exam, no labored breathing, pt able to speak in complete sentences Abdominal: BS active in all 4 quadrants, no guarding, tenderness, rebounding MSK: strength 5/5 upper and lower extremities : no CVA tenderness no bladder distension Extremities: no edema in lower extremities, PT and DP pulses palpable +2 Psych: mood stable, judgement and insight good Skin: intact Objective Data Active Medications Acetaminophen (Acetaminophen 325 Mg Tablet) 650 mg PO Q6H PRN PRN Reason: Pain, Mild 1-3,fever,headache Atorvastatin Calcium (Atorvastatin Calcium 20 Mg Tablet) 20 mg PO DAILY [facility] Last Admin: 06/18/24 08:29 Dose: 20 mg Documented By: STEPHEN Benzonatate (Benzonatate 100 Mg Capsule) 100 mg PO TID PRN PRN Reason: Cough Budesonide (Budesonide 0.5 Mg/2 Ml Ampul.Neb) 0.5 mg INHALE RBID [facility] Last Admin: 06/18/24 07:48 Dose: 0.5 mg Documented By: LESTER Calcium Carbonate (Calcium Carbonate 750 Mg Tab.Chew) 750 mg PO Q4H PRN PRN Reason: Heartburn Ceftriaxone Sodium (Ceftriaxone Sodium 1 Gm Vial) 1 gm IVPUSH Q24H [facility] Stop: 06/23/24 10:31 Cyanocobalamin (Cyanocobalamin (Vitamin B-12) 1,000 Mcg Tablet) 1,000 mcg PO DAILY [facility] Last Admin: 06/18/24 08:29 Dose: 1,000 mcg Documented By: STEPHEN Enoxaparin Sodium (Enoxaparin Sodium 40 Mg/0.4 Ml Syringe) 40 mg SUBCUT Q24H [facility] Last Admin: 06/17/24 13:29 Dose: 40 mg Documented By: YENNI Guaifenesin/Dextromethorphan (Guaifenesin Dm 200/20/10 Ml 10 Ml Syrup) 10 ml PO Q4H PRN PRN Reason: Cough Doxycycline Hyclate 100 mg/ (Sodium Chloride) 250 mls @ 166.67 mls/hr IV Q12H [facility] Stop: 06/23/24 00:00 Last Infusion: 06/18/24 03:40 Dose: Infused Documented By: SHARDA Ipratropium [place] (Ipratropium [place] 0.5 Mg/2.5 Ml Solution) 0.5 mg INHALE RQ4H WHILE AWAKE [facility] Last Admin: 06/18/24 07:48 Dose: 0.5 mg Documented By: LESTER Lisinopril (Lisinopril 20 Mg Tablet) 20 mg PO DAILY [facility]; Protocol Last Admin: 06/18/24 08:29 Dose: 20 mg Documented By: STEPHEN Magnesium Hydroxide (Milk Of Magnesia 30 Ml Oral.Susp) 30 ml PO DAILY PRN PRN Reason: Constipation Methylprednisolone Sodium Succinate (Methylprednisolone Sod Succ 125 Mg/2 Ml Vial) 40 mg IVPUSH Q24H [facility] Omeprazole (Omeprazole 20 Mg Capsule.Dr) 20 mg PO DAILY@0630 [facility] Last Admin: 06/18/24 06:03 Dose: 20 mg Documented By: SHARDA Senna (Sennosides 8.6 Mg Tablet) 17.2 mg PO BEDTIME [facility] Last Admin: 06/17/24 22:17 Dose: 17.2 mg Documented By: VANESSA Sodium Chloride (0.9 % Sodium Chloride Flush 3 Ml Syringe) 3 ml IVFLUSH QSHIFT [facility] Last Admin: 06/18/24 08:33 Dose: 3 ml Documented By: STEPHEN Labs 06/18/24 05:51 06/18/24 05:51 Labs: Laboratory Results - last 24 hr 06/17/24 06/17/24 06/17/24 10:31 10:32 10:39 MCV 85.8 MCH 29.8 MCHC 34.8 RDW 12.1 Plt Count 232 MPV 8.7 L Immature Gran % (Auto) 0.4 Neut % (Auto) 88.0 H Lymph % (Auto) 4.1 L Person % (Auto) 6.3 Eos % (Auto) 0.9 Baso % (Auto) 0.3 Lymph # (Auto) 0.5 L Person # (Auto) 0.7 Eos # (Auto) 0.1 Baso # (Auto) 0.0 Abs Immat Gran (auto) 0.04 H Absolute Neuts (auto) 9.7 H Absolute Nucleated RBC 0.000 Nucleated RBC % (auto) 0.0 VBG pH 7.45 H 7.45 H VBG pCO2 41 41 VBG pO2 54 54 VBG HCO3 29 H 29 H VBG O2 Saturation 87.0 87.0 VBG Base Excess 5.0 5.0 Anion Gap 11 L Estim Creat Clear Calc 79.6 Estimated GFR > 60 Random Glucose 116 H Lactic Acid 1.5 Calcium 9.6 Magnesium 1.4 L* Total Bilirubin 0.9 Direct Bilirubin 0.3 AST 19 ALT 17 Alkaline Phosphatase 83 C-Reactive Protein 4.57 H B-Natriuretic Peptide 17 Total Protein 7.1 Albumin 4.2 Procalcitonin 0.09 Influenza Type A (PCR) NEGATIVE Influenza Type B (PCR) NEGATIVE RSV RNA Qual (PCR) NEGATIVE SARS-CoV-2 RNA (RT-PCR) NEGATIVE 06/18/24 05:51 MCV 86.8 MCH 29.6 MCHC 34.1 RDW 12.2 Plt Count 223 MPV 9.1 L Immature Gran % (Auto) 1.1 H Neut % (Auto) 87.4 H Lymph % (Auto) 5.5 L Person % (Auto) 5.9 Eos % (Auto) 0.0 Baso % (Auto) 0.1 Lymph # (Auto) 0.8 L Person # (Auto) 0.9 Eos # (Auto) 0.0 Baso # (Auto) 0.0 Abs Immat Gran (auto) 0.16 H Absolute Neuts (auto) 13.3 H Absolute Nucleated RBC 0.000 Nucleated RBC % (auto) 0.0 VBG pH VBG pCO2 VBG pO2 VBG HCO3 VBG O2 Saturation VBG Base Excess Anion Gap 10 L Estim Creat Clear Calc 97.3 Estimated GFR > 60 Random Glucose 126 H Lactic Acid Calcium 9.0 D Magnesium 1.8 Total Bilirubin 0.5 Direct Bilirubin AST 18 ALT 16 Alkaline Phosphatase 67 C-Reactive Protein B-Natriuretic Peptide Total Protein 6.1 L Albumin 3.4 L Procalcitonin Influenza Type A (PCR) Influenza Type B (PCR) RSV RNA Qual (PCR) SARS-CoV-2 RNA (RT-PCR) Echocardiogram Attestation Echocardiogram: I personally reviewed and interpreted this echocardiogram as follows: (ST 117 no ischemic changes ) Assessment and Plan (1) Acute hypoxic respiratory failure: Status: Acute Plan Patient is a 74-year-old male with past medical history of hypertension, hyperlipidemia, Garcia's esophagus, GERD, COPD/emphysema being admitted for acute hypoxic respiratory failure, sepsis secondary to a right lower lobe pneumonia. Patient has started ceftriaxone and doxycycline for at least 7 days of antibiotic therapy. Patient also noted to be in sinus tach, 140s after Xopenex nebulizer treatment. Patient is receiving 1 L of LR as well as IV Tylenol. Nebulizers will now include ipratropium and budesonide. We will avoid albuterol and Xopenex. Currently avoiding the use of Lopressor and will monitor patient's heart rate via telemetry. Patient is chest pain-free. EKG is negative for any skin changes. Patient has a prolonged QTC of 536 with a low magnesium of 1.4. Patient did receive 2 g of magnesium in the ED. we will check EKG and magnesium level in the a.m. Patient is being admitted to telemetry. 1. Acute Hypoxic Respiratory Failure RLL on CXR Pt transitioned to RA this morning with RT present, mild mid chest congestion persists, no productive cough noted IS ordered, continuing supoortive care with Nebs, antitussives , telemetry Pt does not use home O2 and recently diagnosed with severe obstructive lung disease in March 2024 via PFT testing 2. Sepsis Pt presented with hypoxia, 88% RA, rebounded to 94% with oxygen and nebulizer, now on RA CRP elevated 4.57, leukocytosis of 11, pt afebrile , LA 1.5 initially Tachy secondary to xopenex, 1L of LR provided with IV tylenol , HR has returned to NSR and rate BC pending Pt is on ceftriaxone and doxycyline day #2, unable to obtain sputum sample prior to starting ABX. Tele continues 3. RLL PNA/ CAP RLL PNA noted on CXR, productive cough green/ yellow sputum Ceftriaxone and Doxycycline ordered X 7 days, day #2 Strep and Legionaries pending Unable to collect sputum prior to ABX starting Pt able to wean to RA today Nebs to include ipratropium and budesonide as pt had a reaction to Xopenex to include tachycardia and mild hand tremors IS ordered, pt encouraged to ambulate 4. Sinus tachycardia Likely secondary to Xopenex provided in ED, albuterol is not ordered ECG ST 117 06/18, HR in the 80's per nursing documentation, apical pulse at rest 88 in exam Pt is not normally on BB, will check TSH with reflex Nebs: avoiding use of albuterol 5. 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 Patient will be on ipratropium and budesonide Methylprednisolone 60 mg IV started in the ED. Continue methylprednisolone 40 mg IV daily and wean. 6. Prolonged Qtc QTC 536, magnesium 1.4, no evidence of torsades noting patient has sinus tachycardia after exposure to Xopenex ECG repeated 06/18 and 426 MG 1.8 today, will give one more IV dose m1GM, and start po 400 mgs of MGOX daily 7. Hypomagnesemia Magnesium 1.8 today, Qtc 426 on repeat ECG. Ordering 1GM IV MG and will start 400 mg po daily. 8. Vit D deficiency Level pending. Patient does not currently take vitamin-D. May require po dosing. 9. Garcia's esophagus / GERD Pt did pass swallow evaluation. Patient reports at times medications and food can sometimes get stuck in the middle of his chest. Patient has seen a specialist recently and is supposed to have an outpatient CT scan in the next month. Pt will continue outpatient follow-up. 10. HTN WIll resume lisinopril but at 20 mgs noting controlled BP. Continue to monitor BP and adjust as needed. Renal fx WNL. 11. Leukocytosis Secondary to steroid therapy for respiratory issues Pt afebrile. Monitor. Patient requires continued hospitalization stay for acute hypoxic respiratory failure, sepsis without severe sepsis or septic shock, right lower lobe pneumonia. Plan is to continue pulmonary toileting, IV ABX, IS and plan for possible DC 06/19. Quality Stroke Does the patient have a stroke diagnosis?: No Reason for No Anti-thrombotic by Day Two: N/A - Med Ordered VTE Prior VTE?: No VTE Risk Level:: Medical - moderate - high VTE Device Contraindication: N/A - Device Ordered VTE Drug Contraindication: N/A - Med Ordered
--- NOTE | 2024-06-18 10:23 | MHC.SL.SWA ---
Speech Pathologist Impression: Risk of Aspiration Due to: History of Pneumonia Dysphasia Diet Status: Continue on least restrictive diet of Regular with Thin liquids, pills whole with liquid. Liquid Consistency and Strategies for Safe Swallow: Liquid Intake Recommendation: Thin Liquid Intake Strategies: Small Sips Solid Food Consistency: Dietary Recommendations: Regular Additional Modifications to Solid Foods: Oral Medication Intake: Whole with Liquid Please contact the pharmacy regarding appropriate crushable or liquid drug formulations that are available whenever modified delivery is recommended. Compensatory Strategies and Precautions to be Taken for Safe Swallow: Sitting Upright (90 deg) Avoid Specific Foods Supervision While Eating and Drinking for Safe Swallow: None Needed Foods to Avoid: Swallowing Recommended Treatments: Compens. Strategy Educat. Recommendation for Speech: Comment: Patient seen this morning at breakfast. Patient was seated in bed, having eaten an initial portion of his meal which was eggs, oatmeal, coffee and juices. Patient was very pleasant, and was enjoying his meal. Patient observed independently feeding himself, evidenced timely normal swallow on bites of food. On sips of liquid all aspects of swallow WFL. Patient has no complaint of swallow difficulty, enjoying his diet. Recommend D/C from Speech service, [facility] will discharge order. Continue on least restrictive diet of Regular with Thin liquids, pills whole with liquid. Frequency/Duration: Date Range for Service Req: Timeline to reassess: Director Bioinformatics Clinican/Clinical Fellow: No Supervisory Statement: I have reviewed and agree with the student/clinical fellow's documentation: N/A Speech Language Pathologist: Rody Kemp M.A., [facility]
[2024-06-18 10:40] LABS: TSH reflex Free T4 0.44 uIU/mL (0.32-4.0)
[2024-06-18] MEDS: methylPREDNISolone Sod Succ 125 MG/2 ML VIAL 40 MG IVPUSH (11:24)
[2024-06-18] MEDS: cefTRIAXone sodium 1 GM VIAL IVPUSH (11:24)
[2024-06-18] MEDS: Magnesium Sulfate/D5W 1 GM/100 ML PIGGYBACK IV (11:36)
[2024-06-18] MEDS: Enoxaparin Sodium 40 MG/0.4 ML SYRINGE SUBCUT (13:03)
[2024-06-19] VITALS: BP 127/72; PULSE 84; RESP 19; TEMP 36.7; O2SAT 94
--- NOTE | 2024-06-19 | ECG_ITS ---
Test Reason : ensure tachy resolved and QTC WNL Blood Pressure : */* mmHG Vent. Rate : 93 BPM Atrial Rate : 93 BPM P-R Int : 184 ms QRS Dur : 96 ms QT Int : 336 ms P-R-T Axes : 73 61 56 degrees QTcB Int : 417 ms Normal sinus rhythm Normal ECG When compared with ECG of 18-Jun-2024 10:50, Nonspecific T wave abnormality now evident in Lateral leads Referred By: Vanessa Brar Electronically Signed By: DONNA CARPIO MD
[2024-06-19] MEDS: 0.9 % Sodium Chloride Flush 3 ML SYRINGE IVFLUSH ×2 (00:40→08:08)
[2024-06-19] MEDS: Doxycycline Hyclate 100 MG in 0.9 % Sodium Chloride 250 ML 166.67 MG IV (00:40)
[2024-06-19 03:56] VITALS: BP 121/64; PULSE 83; RESP 19; TEMP 36.7; O2SAT 94
[2024-06-19] MEDS: Omeprazole 20 MG CAPSULE.DR PO (06:32)
[2024-06-19 07:26] VITALS: BP 138/79; PULSE 70; RESP 18; TEMP 36.4; O2SAT 92
[2024-06-19] MEDS: Budesonide 0.5 MG/2 ML AMPUL.NEB INHALE (07:48)
[2024-06-19] MEDS: Ipratropium Bromide 0.5 MG/2.5 ML SOLUTION INHALE (07:48)
[2024-06-19 07:50] VITALS: PULSE 88; RESP 18; O2SAT 90
[2024-06-19] MEDS: Atorvastatin Calcium 20 MG TABLET PO (08:08)
[2024-06-19] MEDS: Cyanocobalamin (Vitamin B-12) 1,000 MCG TABLET 1000 MCG PO (08:08)
[2024-06-19] MEDS: lisinopriL 20 MG TABLET PO (08:08)
[2024-06-19] MEDS: Magnesium Oxide 400 MG TABLET PO (08:08)
--- NOTE | 2024-06-19 10:19 | P.DS_ITS ---
DS: Providers Provider Date of Service: 06/19/24 Date of admission: 06/17/24 12:31 Date of discharge: 06/19/24 Primary care physician: IRENE David Attending physician on discharge: [facility] Discharging clinician: Vanessa Brar DS: Diagnosis Discharge Diagnosis (1) Acute hypoxic respiratory failure: Status: Acute (2) Tachycardia: Status: Acute (3) Right lower lobe pneumonia: Status: Acute (4) Acute exacerbation of chronic obstructive airways disease: Status: Acute (5) Hypomagnesemia: Status: Acute (6) Prolonged QT interval: Status: Acute (7) Vitamin D deficiency: Status: Chronic (8) Barretts esophagus: Status: Chronic DS: Summary Hospital Course Hospital Course: Patient is a 74-year-old male with past medical history of GERD, severe obstructive pulmonary disease, hypertension, mild anemia, vitamin-D deficiency, hyperlipidemia, Garcia's esophagus, and possible environmental exposure to chemicals while working (patient is currently retired) presented to the emergency room with severe shortness of breath and productive cough of green-yellow sputum. Patient became severely tachycardic and presented with shakiness in both hands status post Xopenex nebulizer treatment. Patient initially required oxygen supplementation. Chest x-ray noted a right lower lobe pneumonia. Patient had denied any chest pain, myalgias, fevers but has been around grandchildren that were not feeling well with upper respiratory illnesses. All viral testing was negative. Patient did respond to 1 L of fluid and Ofirmev with the cessation of albuterol products and heart rate did return to normal limits. EKG confirms patient remained in sinus tachycardia with no issues regarding rhythm. QTC was noted to be prolonged over 540 and magnesium was 1.4. Patient received 2 g of magnesium in the emergency room. Repeat EKG reflected and improved QTC of 436 and a Mag of 1.8 patient is now on daily magnesium until review with his primary care physician. Patient was started on ceftriaxone and doxycycline. Patient has reported issues with his esophagus and is following with a specialist. Patient has known Garcia's esophagus. Speech therapy did see the patient and patient passed swallow evaluation at the bedside. No dietary adjustments were required. Patient has plans to follow up with a specialist for further intervention if needed. No evidence of aspiration noted. Patient overall has responded well to treatment and interventions. Patient has been on room air for over 24 hours and can achieve over 2 L on incentive spirometry. Lung sounds have improved. Patient is able to ambulate to the bathroom and within the room without shortness of breath. Patient does have rescue inhaler at home which does not need renewal. Patient is not on daily inhalers noting have PFT testing with Dr. Beyer in August noting severe obstructive pulmonary disease. Patient provided education on this and patient plans to follow with Pulmonary and his primary care physician to discuss the use of for treatments as needed and daily inhaler of the appropriate medication. Patient states he does not require any home care nursing and is independent at home. Patient currently lives with his spouse. Patient will complete antibiotics at home with oral cefpodoxime and doxycycline until June 23. Patient instructed to complete medication as prescribed and not to stop the medication earlier than June 23. Patient also educated on how to manage a missed dose if this occurs. Patient educated to wear a mask when out in public for the next 2 weeks to prevent reinfection or new viral upper respiratory infection. Patient also educated to avoid contact with sick children or adults. Patient stopped smoking years ago, so NRT is not required for discharge. Patient will discuss Pneumovax vaccination with his primary care chin. Patient is vaccinated against influenza every year. Patient will not require prednisone taper for discharge and patient defers this at this time. Patient will continue oral magnesium oxide 400 mg daily and this can be also be reviewed with his primary care physician in regards to length of therapy. EKG repeated on day of discharge and is reassuring. QTC is within normal limits. Patient is in normal sinus rhythm, no ischemic changes noted. Patient is being discharged in stable condition. Educational instructions provided and patient will follow with his PCP within 5 days and his food science professor within 2-4 weeks. Patient advised to seek emergent intervention or call 911 for any life- threatening issues including chest pain, shortness of breath or any other life- threatening concerns. Status at Discharge Cognitive/behavioral status at discharge: Alert orientated x3. Able to ambulate 50 ft without shortness of breath. Vital signs stable. Functional status at discharge: independent ambulation Overall status at discharge: patient is back to baseline Time Attestation Total time managing care of this patient today: 40 mintues. Discharge Coordination Time (in mins): 10 Specific discharge activities: Coordination of care, discharge summary dictation, patient education, review of discharge plan with staff and patient Quality: Safe Use of Opioids Does Pt have an Active Cancer Diagnosis on the Problem List?: No Quality: Stroke Does the patient have a stroke diagnosis?: No Physical Exam Vital Signs: Vital Signs: Last Vital Signs Temp 97.6 F 06/19/24 07:26 Pulse 88 06/19/24 07:50 Resp 18 06/19/24 07:50 BP 138/79 06/19/24 07:26 Pulse Ox 92 06/19/24 07:26 O2 Del Method Room Air 06/19/24 07:26 O2 Flow Rate 2 06/18/24 07:15 BMI result Body Mass Index 27.5 Alert and orientated X3, able to give good history. Neuro: CN II-X11 intact, no deficits, visual acuity intact EYES: PERRLA, EOM intact ENT: hearing intact, no issues with swallowing, uvula midline, lips moist, nares patent no epistaxis Cardiac: S1 S2 RRR, no murmur, no JVD, no edema in Lower ext Pulmonary: lungs diminished bilaterally, no adventitious sounds noted. No labored breathing identified. Abdominal: BS active in all 4 quadrants, no guarding, tenderness, rebounding MSK: strength 5/5 upper and lower extremities : no CVA tenderness no bladder distension Extremities: no edema in lower extremities, PT and DP pulses palpable +2 Psych: mood stable, judgement and insight good Skin: intact, no open wounds or rash DS: Data Data Completed and Pending Completed studies during hospitalization [Text1]: Chest Xray Pending studies at discharge: Vitamin D level Labs on day of discharge: Laboratory Results - last 24 hr 06/18/24 05:51 TSH 0.44 Preliminary micro results at discharge 06/17/24 10:38 Blood Culture - Preliminary Blood - Venous No growth after 24 hours. 06/17/24 10:31 Blood Culture - Preliminary Blood - Venous No growth after 24 hours. Imaging Chest x-ray: Radiologist's impression: ITS Impressions Chest X-Ray 06/17/24 10:26 IMPRESSION: Right basilar pneumonia. Follow-up is recommended to document resolution. Electronically signed by: Kishore Lam MD 06/17/2024 11:01 AM EDT RP Discharge Plan Discharge Anticipated Discharge Date/Time: 06/19/24 11:00 Patient Disposition: Home, Self-Care Discharge Diagnosis: CAP, prolonged QTc, hypomagnesemia, severe obstructive disease Referrals: Micah Gómez, CODING COMPLIANCE MANAGER-BC [Primary Care Provider] - 1 Week Discharge Medications: New magnesium oxide 400 mg (241.3 mg magnesium) Tablet 400 mg PO DAILY Qty: 30 0RF dextromethorphan-guaifenesin 10-100 mg/5 mL Syrup 10 ml PO Q4H PRN (Reason: Cough) Qty: 120 0RF cefpodoxime 200 mg tablet 200 mg PO BID Qty: 10 0RF Rx Instructions: must administer with a meal/food. Take first dose evening of 06/19. doxycycline hyclate 100 mg capsule 100 mg PO BID Qty: 10 0RF Rx Instructions: Please take first dose evening of 06/19/24. Continued rosuvastatin 5 mg tablet 5 mg PO DAILY Qty: 90 1RF lisinopril 40 mg tablet 40 mg PO DAILY Qty: 90 1RF omeprazole 20 mg Tablet,Delayed Release (Dr/Ec) 20 mg PO DAILY@0630 cyanocobalamin (vitamin B-12) [Vitamin B-12] 1,000 mcg Tablet 1,000 mcg PO DAILY Centrum Silver Men [id number] mcg Tablet 1 tab PO DAILY albuterol sulfate [Ventolin HFA] 90 mcg/actuation HFA aerosol inhaler 2 puff inhalation QID PRN (Reason: Shortness Of Breath Or Wheezing) Discharge Orders: Discharge Order (Routine); Ordered 06/19/24 Ordered By: Vanessa Brar Diet: Advance to usual diet Activity on Discharge: As tolerated Stand Alone Forms: Patient Portal Discharge page Print Language: [place] Citizen Activity Restrictions/Additional Instructions: -Consider wearing a mask when out in public over the next to weeks to prevent reinfection -Avoid contact with children or adults that are known to have respiratory illness -Review need for pneumovax vaccine (to help prevent PNA) with your PCP -Review need for as needed nebulizer treatments at home for shortness of breath or wheezing and daily inhaler use (not the rescue inhaler) for known severe obstructive disease with your PCP and your food science professor -Please take the magnesium oxide ordered for you on discharge daily noting your magnesium was low and your ECG QTc was prolonged. Once your magnesium was corrected, your QTc also corrected. Can review with your PCP regarding length of therapy. -Please note that Xopenex, a form of albuterol was added to your list of allergies as an adverse reaction noting you experienced tachycardia or fast heart rate and hand tremors after receiving this breathing treatment for your shortness of breath. You may need to avoid all medications with albuterol listed. -Please review the need for vitamin-D supplementation as your labs for vitamin-D level were pending upon discharge. You can discuss this with your primary care physician. -Please follow up with your specialist regarding esophageal issues. You passed your swallow evaluation here and no dietary changes were required. Care Plan Goals: Prevention of further episodes of community acquired PNA To obtain review and Health Concerns: Severe obstructive disease (emphysema) chronic Reoccuring PNA, prevention Plan of Treatment: Pt will complete oral antibiotics as prescribed. Patient has been instructed to take the medication until finished and not to stop earlier than scheduled. Patient also notes if he skips a dose not to double the dose but to continue from where he left off and the prescription will last longer. Patient prescribed magnesium oxide noting low magnesium and prolonged QTC which are now corrected with supplementation. Patient does not require refill of his rescue inhaler. Patient will be discussing the use of nebs and daily inhaler use of appropriate medication with his primary care physician and food science professor. Education provided on severe obstructive pulmonary disease which patient was diagnosed via PFT testing back in March of 2024. Patient is planning on follow-up with his food science professor and outpatient testing as needed. Patient does not currently require oxygen. Assessment: Patient is currently on room air with no shortness of breath at rest or with exertion. Lungs are diminished but no adventitious sounds noted. Patient is able to achieve over 2 L on incentive spirometry. Patient remains afebrile no chills and labs are reassuring. Magnesium has been corrected. Patient may require a vitamin-D supplementation as his labs are pending. Appetite is good no issues with constipation or diarrhea. Patient feels improved and ready to go home. Patient Instructions: COPD (Chronic Obstructive Pulmonary Disease) (GEN), Hypomagnesemia (DC), Pneumonia (DC), Vitamin D Deficiency (GEN)
--- NOTE | 2024-06-19 11:07 | MHC.CM.PN ---
Pt is medically cleared for discharge home self-care, pts will transport him home today.
[2024-06-24 19:19] LABS: VITAMIN D (1,25 OH) D3 74 pg/mL; Vit D (1,25-Dihydroxy) Total 74 pg/mL (18-72); Vitamin D (1,25 OH) D2 <8 pg/mL
== END 2024-06-19 11:15 | disposition home or self-care (01) | DRG 871 ==
LOC: HO.ED 11:13 → HO.EDOVER 12:44 → HO.IMC 16:07
PROVIDERS: Admitting Provider Nurse Practitioner Family; Emergency Provider Emergency Medicine; PCP Nurse Practitioner Family; Visit Provider Nurse Practitioner Family
DX: A41.9 Sepsis, unspecified organism (principal); J18.9 Pneumonia, unspecified organism; J96.01 Acute respiratory failure with hypoxia; K21.9 Gastro-esophageal reflux disease without esophagitis; K22.70 Barrett's esophagus without dysplasia; R00.0 Tachycardia, unspecified; E55.9 Vitamin D deficiency, unspecified; T48.6X5A Adverse effect of antiasthmatics, initial encounter; J43.9 Emphysema, unspecified; R94.31 Abnormal electrocardiogram [ECG] [EKG]; E83.42 Hypomagnesemia; Z20.822 Contact with and (suspected) exposure to COVID-19; Z87.891 Personal history of nicotine dependence; Z79.899 Other long term (current) drug therapy
CPT/HCPCS: 0241U; 36415; 71045; 80048; 80053; 80076; 82652; 82803; 83605; 83735; 83880; 84145; 84443; 84484; 85025; 86140; 87040; 92526; 92610; 93005; 94640; 99285; J0131; J0696; J1650; J2919; J3475; J7120

== ENCOUNTER → 2024-06-17 10:26 | Outpatient (BNV) | payer MEDICARE, SELFPAY | PROVIDERS: Admitting Provider Nurse Practitioner Family; Emergency Provider Emergency Medicine; PCP Nurse Practitioner Family; Visit Provider Internal Medicine Cardiovascular Disease | DX: R00.0 Tachycardia, unspecified (principal) | CPT/HCPCS: 93010 ==

== ENCOUNTER → 2024-06-17 10:26 | Outpatient (BNV) | payer MEDICARE, SELFPAY | PROVIDERS: Emergency Provider Emergency Medicine; PCP Nurse Practitioner Family; Visit Provider Radiology Diagnostic Radiology | DX: R06.00 Dyspnea, unspecified (principal) | CPT/HCPCS: 71045 ==

== ENCOUNTER 2024-06-17 12:31 | Outpatient (BNV) | payer MEDICARE, SELFPAY | END 2024-06-18 08:00 | PROVIDERS: Admitting Provider Nurse Practitioner Family; Emergency Provider Emergency Medicine; PCP Nurse Practitioner Family; Visit Provider Internal Medicine Cardiovascular Disease | DX: R00.0 Tachycardia, unspecified (principal) | CPT/HCPCS: 93010 ==

== ENCOUNTER 2024-06-17 12:31 | Outpatient (BNV) | payer MEDICARE, SELFPAY | END 2024-06-19 10:37 | PROVIDERS: Admitting Provider Nurse Practitioner Family; Emergency Provider Emergency Medicine; PCP Nurse Practitioner Family; Visit Provider Internal Medicine Cardiovascular Disease | DX: R00.0 Tachycardia, unspecified (principal) | CPT/HCPCS: 93010 ==

== ENCOUNTER → 2024-06-17 12:31 | Outpatient (BNV) | payer MEDICARE, SELFPAY | PROVIDERS: Admitting Provider Nurse Practitioner Family; Emergency Provider Emergency Medicine; PCP Nurse Practitioner Family; Visit Provider Nurse Practitioner Family | DX: J96.01 Acute respiratory failure with hypoxia (principal); A41.9 Sepsis, unspecified organism; J18.9 Pneumonia, unspecified organism; R00.0 Tachycardia, unspecified; J44.1 Chronic obstructive pulmonary disease with (acute) exacerbation; R94.31 Abnormal electrocardiogram [ECG] [EKG]; E83.42 Hypomagnesemia; E55.9 Vitamin D deficiency, unspecified; K22.70 Barrett's esophagus without dysplasia; K21.9 Gastro-esophageal reflux disease without esophagitis; I10 Essential (primary) hypertension | CPT/HCPCS: 99222; 99232; 99239; 99499 ==

== ENCOUNTER 2024-07-03 10:55 | Outpatient (AMB) | payer MEDICARE, SELFPAY ==
--- NOTE | 2024-07-03 11:10 | A.OFFPC_ITS ---
Vital Signs 07/03/24 11:12 Height 5 ft 5.5 in Weight 165 lb 3.2 oz BMI 27.1 BP 112/76 Blood Pressure Location Lt brachial Position Sitting Respiration 20 Pulse 70 Pulse Source Pulse Oximeter Temp 97.5 F Temp Source Temporal Artery Scan Pulse Oximetry (%) 95 Oxygen Delivery Method Room Air Intake Visit Reasons: TCM Intake Note: Patient is here for hospital discharge follow up. Patient was discharged from [facility] in [facility] on 06/19/2024. Stitching Department Supervisor Required: No Accompanied by: Self / Same As Patient Allergies levalbuterol [From Xopenex] Adverse Reaction (Severe, Verified 07/03/24 11:11) Shakiness Tobacco use date assessed: 07/03/24 Fall risk assessment: No Falls in past year Last assessed Fall Risk: 07/03/24 Dental Screening Dental Screen Date: 07/03/24 Did you have a dental visit in the last 12 months?: No Did you have a dental problem in the last 6 months where you did not have access to dental care?: No Was dental information given to patient?: No HPI HPI Comments History of Present Illness Details 74 y/o Male Patient who presents to the clinic for TCM. PMhx significant for GERD, severe obstructive pulmonary disease, hypertension, mild anemia, vitamin-D deficiency, hyperlipidemia, and Garcia's esophagus who [place] [facility] due to Acute Exacerbation COPD and Pneumonia. Chest x-ray noted a right lower lobe pneumonia. Patient was prescribed magnesium oxide noting low magnesium and prolonged QTC which are now corrected with supplementation. Today Patient denies SOB, CP, Wheezing or Chest tightness. [facility] Medical History (Updated 07/03/24 @ 11:13 by Grazyna Estrada NP) Diverticulosis Hyperlipidemia Barretts esophagus Hemorrhoids COPD (chronic obstructive pulmonary disease) Carotid bruit HTN (hypertension) Surgical History H/O colonoscopy History of esophagogastroduodenoscopy (EGD) Hx of tonsillectomy Family History Father No problems noted. Mother No problems noted. Social History Household Members: Spouse Housing: House Do you presently have visiting nurse or other home services: No Patient Tobacco Use Status: Former Tobacco user Tobacco use type: Cigarette Years Smoked: 10 in 2015, started around age 14, 1.5PPD e-Cigarette/Vaping Use: Never Used Second Hand Smoke Exposure: Yes Substance Use Type: Marijuana service: No Current occupational status: retired Cognitive needs: No Hearing needs: No Vision needs: Yes (Glasses) Questionnaire PHQ-9 Over the last 2 weeks, how often have you been bothered by any of the following problems? 1. Little interest or pleasure in doing things: not at all 2. Feeling down, depressed, or hopeless: not at all 3. Trouble falling or staying asleep, or sleeping too much: not at all 4. Feeling tired or having little energy: several days 5. Poor appetite or overeating: not at all 6. Feeling bad about yourself - or that you are a failure or have let yourself or your family down: not at all 7. Trouble concentrating on things, such as reading the newspaper or watching television: not at all 8. Moving or speaking so slowly that other people could have noticed. Or the opposite - being so fidgety or restless that you have been moving around a lot more than usual: not at all 9. Thoughts that you would be better off or of hurting yourself in some way: not at all Total score: 1 Depression Screening Interpretation: Negative Depression Screening Done: Yes 35589 - PHQ-9 Billing: Yes Source: Developed by Drs. Kishore Medellin, Caridad Fierro, Ottoniel Bui and colleagues, with an educational dakota from [employer]. Thrive Questionnaire Date Thrive assessed: 07/03/24 I am a: Patient What is your living situation today?: I have a steady place to live Within the past 12 months, did the food you bought not last and you didn't have the money to get more?: Never true Within the past 12 months, did you worry whether your food would run out before you got money to buy more?: Never true Do you have trouble paying for medicines?: No Do you have trouble getting transportation to medical appointments?: No Do you have trouble paying your heating and electricity bill?: No Do you have trouble taking care of your child, family member or friend?: No Do you have trouble with day-to-day activities such as bathing, preparing meals, shopping, managing finances, etc.?: No Are you currently unemployed and looking for a job?: No Are you interested in more education?: No Please select the resources that you would like help with: None Currently or been in a relationship where the following occur: I choose not to answer THRIVE Score: 0 AUDIT C Alcohol Use Questionnaire (AUDIT-C) 1. How often do you have a drink containing alcohol?: 2-3 times a week 2. How many drinks containing alcohol do you have on a typical day when you are drinking?: 1 or 2 3. How often do you have six or more drinks on one occasion?: Never Total Score: 3 Score Reviewed/Action Taken: Yes WESLEY-7 AMB Questionnaire WESLEY-7 Date WESLEY - 7 assessed: 07/03/24 Feeling nervous, anxious, or on edge: 0 = Not at all Not being able to stop or control worryin = Not at all Worrying too much about different things: 0 = Not at all Trouble relaxin = Not at all Being so restless that it is hard to sit still: 0 = Not at all Becoming easily annoyed or irritable: 0 = Not at all Feeling afraid as if something awful might happen: 0 = Not at all Total WESLEY-7 score (0-4 normal; 5-9 mild; 10-14 moderate; 15-21 severe): 0 Source: Developed by Drs. Kishore Medellin, Caridad Fierro, Ottoniel Bui and colleagues, with an educational dakota from [employer]. WESLEY-7 Assessment Billing WESLEY-7 Assessment Tool: WESLEY-7 Assessment 96674 Review of Systems Const All systems reviewed & are unremarkable except as noted in HPI and below Physical exam (Primary Care) Vital Signs: Last Vital Signs Temp 97.5 F 07/03/24 11:12 Pulse 70 07/03/24 11:12 Resp 20 07/03/24 11:12 BP 112/76 07/03/24 11:12 Pulse Ox 95 07/03/24 11:12 Oxygen Delivery Method Room Air 07/03/24 11:12 BMI result Body Mass Index 27.1 Tobacco/Smoking Status: Tobacco use Status Tobacco use date assessed 07/03/24 07/03/24 11:13 Patient Tobacco Use Status Former Tobacco user 07/03/24 11:13 Tobacco use type Cigarette 07/03/24 11:13 e-Cigarette/Vaping Use Never Used 07/03/24 11:13 PHQ-9: PHQ-9 Score PHQ-9: Total score 1 07/03/24 11:21 Depression Screening Interpretation: Negative Thrive Assessment: Date of Thrive Assessment Date Thrive assessed 07/03/24 07/03/24 11:13 Currently or been in a relationship where the following occur: I choose not to answer Const General: no acute distress Orientation/consciousness: patient oriented x3 Resp Effort & Inspection: normal respiratory effort and able to speak in complete sentences Auscultation: clear to auscultation bilaterally, no crackles, no rales, no rho nchi and no wheezes Cardio Heart sounds: S1 normal heart sound present and S2 normal heart sound present Neuro General: patient oriented x3 Coding Level of Care Code TCM Mod MDM <= 14 Days Diagnoses Chronic obstructive pulmonary disease with acute lower respiratory infection J44.0 COPD type: COPD with acute lower respiratory infection Right lower lobe pneumonia J18.9 Pneumonia type: due to unspecified organism Additional Codes WESLEY-7 Assessment Billing - WESLEY-7 Assessment Tool: WESLEY-7 Assessment 08619 ([id number]) PHQ-9 - 61684 - PHQ-9 Billing: Yes ([id number]) Time Spent (min) 20 Assessment & Plan Assessment & Plan (1) COPD (chronic obstructive pulmonary disease): Code(s): J44.9 - Chronic obstructive pulmonary disease, unspecified Category: Medical Qualifiers: COPD type: COPD with acute lower respiratory infection Qualified Code(s): J44.0 - Chronic obstructive pulmonary disease with (acute) lower respiratory infection Plan: Well controlled on Albuterol Inhaler PRN. (2) Right lower lobe pneumonia: Code(s): J18.9 - Pneumonia, unspecified organism Category: Medical Qualifiers: Pneumonia type: due to unspecified organism Qualified Code(s): J18.9 - Pneumonia, unspecified organism Plan: Resolved. Completed Abx, no further intervention needed.
[2024-07-03 11:12] VITALS: BP 112/76; PULSE 70; RESP 20; TEMP 36.4; O2SAT 95; BMI 27.1
--- OUTSIDE RECORDS SUMMARY | 2024-07-03 11:52 | XMS_ITS ---
Author Organization [facility] Address [address] [place] [address] Care Team Providers Care Electronic Sales And Service Technician Name Role Phone BIN ANDREW Primary Care Provider Farrukh Velasquez Jr, Adan Amaya [phone] REASON FOR VISIT pathology/ waiting on pt call back Encounters Encounter Location Date Provider Diagnosis [facility] [address] [place] [address] 05/20/2023 Adan Velasquez Jr Plan Of Treatment Next Appt Details Provider Name:Adan nam Jr, 06/03/2025 01:35:00 PM, [address], [address], [place], [address], Progress Notes * MORGAN PORTILLO IIIDOB:12/1950 (73 yo M)Acc No.[id number]:05/20/2023 Patient:?MORGAN PORTILLO :1950???Age:73 Y???Sex:Male Address:[address] [place], [address] * true * Date:? Generated for Pepei liberty/Jennifer/eTransmitting on:?07/03/2024 11:52 AM EDT
--- OUTSIDE RECORDS SUMMARY | 2024-07-03 11:52 | XMS_ITS ---
Author Organization [facility] Address [address] [place] [address] Care Team Providers Care Hammer Driver Name Role Phone BIN ANDREW Primary Care Provider Adan Yuen Jr Allergies No Known Allergies REASON FOR VISIT Patient presents today for fuentes's Medications Medication SIG (Take, Route, Frequency, Duration) Notes Start Date End Date Status Omeprazole 20 MG TAKE 1 CAPSULE BY [facility] 30 MINUTES BEFORE MORNING MEAL EVERY DAY FOR 90 DAYS for 90 Unknown Lisinopril 10 MG 1 tablet Orally Once a day Unknown Metoprolol Tartrate 25 MG 1 tablet Orall y Twice a day Unknown Social History Tobacco Use: Social History Observation Description Date Details (start date - stop date) Former Smoker NA - NA Tobacco Use/Smoking Question Answer Notes Patient is a former smoker How long has it been since you last smoked? 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 confirmed Vital Signs Temperature 97.7 degrees Fahrenheit 06/02/19 25 Blood pressure systolic 001 mm Hg 06/02/19 25 Blood pressure diastolic 01 mm Hg 025 Height 65.5 in 06/01/2024 Weight 168.2 lbs 06/01/2024 BMI 27.56 kg/m2 06/01/2024 Encounters Encounter Location Date Provider Diagnosis [facility] [address] [place] [address] 06/01/2024 Adan Velasquez Jr Fuentes's esophagus without dysplasia K22.70 and Colon cancer screening Z12.11 Assessments Encounter Date Diagnosis (ICD Code) Assessment Notes Treatment Notes Treatment Clinical Notes Section Notes 06/01/2024 Fuentes's esophagus without dysplasia (ICD-10 - K22.70) 06/01/2024 Colon cancer screening (ICD-10 - Z12.11) Plan Of Treatment Next Appt Details Provider Name:Adan nam Jr, 06/03/2025 01:35:00 PM, [address] [facility], [address], [place], [address], Progress Notes * MORGAN PORTILLO IIIDOB:12/1950 (74 yo M)Acc No.[id number]:06/01/2024 Progress Notes Patient:?MORGAN PORTILLO I II Provider:?Adan Velasquez MD :1950???Age:74 Y???Sex:Male Michael e:06/01/2024 Address:[address] [place], [place] [id number] Pcp:BIN ANDREW Subjective: * Chief Complaints: * ???1. Patient presents today for fuentes's. * Medical History:?Fuentes's e sophagus, EGD 04/12, multilinear epithelium with no dysplasia. 5 year recall., Hypertension, Colonoscopy 09/17/14, diverticulosis, follow up to 08/2024, COPD, Hyperlipidemia. * Family History:?Father: dece ased.?Mother: .?Siblings: alive, brother throat cancer [facility], diagnosed with Heart disease.? No family history of colon cancer or liver cancer. * Social History:?Tobacco Use:?Tobacco Use/Smoking?Patient is a?former smoker,?How long has it been since you last smoked??1-5 years.?Drugs/Alcohol:?Alcohol Screen?Points: 2, Interpretation: Negative.?occasional beer. * Medications:?Unknown Metopro lol Tartrate 25 MG Tablet 1 tablet Orally Twice a day , Unknown Lisinopril 10 MG Tablet 1 tablet Orally Once a day , Unknown Omeprazole 20 MG Capsule Delayed Release TAKE 1 CAPSULE BY MOUTH 30 MINUTES BEFORE MORNING MEAL EVERY DAY FOR 90 DAYS , Medication List reviewed and reconciled with the patient * Allergies:?N.K.D.A. Objective: * Vitals:?Wt:168.2lbs, Ht: 65. 5 in, BMI:27.56Index, BP:001/01mm Hg, Temp:97.7, Wt- k.3. Assessment: * Assessment: 1.?Fuentes's esophagus witho ut dysplasia - K22.70 (Primary)???2.?Colon cancer screening - Z12.11??? Plan: * Treatment: * Preventive Medicine:? ??Counseling:?Care goal follow-up plan:?Above Normal BMI Follow-up?Dietary management education, guidance, and counseling,?BMI management provided?Yes.? ??Screenings:?Fall Risk Screening?Fall Risk Assessment:?No falls in the past year,?Screening:?No falls in the past year,?Assessment:?Not performed, no reason specified,?Plan of Care:?Not documented, no reason specified.? * * The named appointment provid er may or may not be the originator of this progress note, and it is not deemed complete until electronically signed by the appointment provider. Sign off status: Pending * Provider:?Adan Velasquez MD Date:?0 06/01/2024 Generated for Aldo koenig/Jennifer/Jimmyitting on:?07/03/2024 11:52 AM EDT
--- OUTSIDE RECORDS SUMMARY | 2024-07-03 11:52 | XMS_ITS | Patient Health Record ---
Author Organization [facility] Address [address] [place] [address] Care Team Providers Care Ham Smoker Name Role Phone BIN ANDREW Primary Care Provider Adan Yuen Jr Unavailable [phone] Allergies No Known Allergies Reason For Referral No Information Medications Medication SIG (Take, Route, Frequency, Duration) Notes Start Date End Date Status Omeprazole 20 MG TAKE 1 CAPSULE BY [facility] 30 MINUTES BEFORE MORNING MEAL EVERY DAY FOR 90 DAYS for 90 Unknown Lisinopril 10 MG 1 tablet Orally Once a day Unknown Metoprolol Tartrate 25 MG 1 tablet Orall y Twice a day Unknown Immunizations Vaccine Route Administration Date Status Comme nts Influenza Unknown 03/25/2023 Administered Influenza Unknown 01/14/2024 Administered Social History Tobacco Use: Social History Observation Description Date Details (start date - stop date) Former Smoker NA - NA Tobacco Use/Smoking Question Answer Notes Patient is a former smoker How long has it been since you last smoked? 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 Problem 784320299 Barretts esophagus without dysplasia (K22.70) Active confirmed Problem Garcia's esophagus (014155530) Garcia''s esophagus without dysplasia (K22.70) Active confirmed Vital Signs Temperature 97.7 degrees Fahrenheit 06/01/2024 Blood pressure diastolic 01 mm Hg 06/01/2024 Height 65.5 in 06/01/2024 Blood pressure systolic 001 mm Hg 06/01/2024 Weight 168.2 lbs 06/01/2024 BMI 27.56 kg/m2 06/01/2024 Encounters Encounter Location Date Provider Diagnosis [facility] [address] [place] [address] 06/01/2024 Adan Velasquez Jr Garcia's esophagus without dysplasia K22.70 and Colon cancer screening Z12.11 Assessments Encounter Date Diagnosis (ICD Code) Assessment Notes Treatment Notes Treatment Clinical Notes Section Notes 06/01/2024 Colon cancer screening (ICD-10 - Z12.11) 06/01/2024 Garcia's esophagus without dysplasia (ICD-10 - K22.70) Plan Of Treatment Future Test Test Name Order Date UPPER GI ENDOSCOPY ANY OTHER TECHNIQUE 0 08/18/2014 COLONOSCOPY 08/18/2014 UPPER GI ENDOSCOPY 12/26/2017 UPPER GI ENDOSCOPY 04/24/2023 Next Appt Details Provider Name:Adan nam , 06/03/2025 01:35:00 PM, [address] [facility], [address], [place], [address], Insurance Providers Payer Name Payer Address Payer Phone Subscriber Number Group Number Insured Name Patient Relationship to Insured Coverage Start Date Coverage End Date [facility] [address] [place] [address] [id number] MORGAN PORTILLO Self - patient is the insured Medical (General) History Medical History History ICD Code Garica's esophagus, EGD 03/25 9, multilinear epithelium with no dysplasia. 5 year recall. hypertension colonoscopy 09/17/14, diverticulosis, fol low up to 08/2024 COPD Hyperlipidemia Surgical History Surgery Date(Month/Year)
--- OUTSIDE RECORDS SUMMARY | 2024-07-03 11:53 | XMS_ITS ---
Author Organization [facility] Address [address] [place] [address] Care Team Providers Care Maintenance Technician 3Rd Shift Name Role Phone BIN ANDREW Primary Care Provider Adan Yuen Jr REASON FOR VISIT one year follow up / barretts esophagus Encounters Encounter Location Date Provider Diagnosis [facility] [address] [facility] [address] [place] [address] 05/21/2024 Adan Velasquez Jr Plan Of Treatment Next Appt Details Provider Name:Adan nam Jr, 06/03/2025 01:35:00 PM, [address] [facility], [address], [place], [address], Progress Notes * MORGAN PORTILLO IIIDOB:12/1950 (74 yo M)Acc No.[id number]:05/21/2024 Progress Notes Patient:?MORGAN PORTILLO I II Provider:?Adan Velasquez MD :1950???Age:74 Y???Sex:Male Michael e:05/21/2024 Address:[address] [place], [place] [id number] Pcp:BIN ANDREW Subjective: * Chief Complaints: * ???1. One year follow up / b arretts esophagus. * Medical History:? Objective: * Vitals:? Assessment: Plan: * Treatment: * * The named appointment provid er may or may not be the originator of this progress note, and it is not deemed complete until electronically signed by the appointment provider. Sign off status: Pending * Provider:?Adan Velasquez MD Date:?0 05/21/2024 Generated for Aldo koenig/Jennifer/Scar on:?07/03/2024 11:52 AM EDT
== END 2024-07-03 11:27 | disposition home or self-care (01) ==
LOC: HO.HMCH 10:56
PROVIDERS: PCP Nurse Practitioner Family; Visit Provider Nurse Practitioner Family
DX: J44.0 Chronic obstructive pulmonary disease with (acute) lower respiratory infection (principal); J18.9 Pneumonia, unspecified organism

== ENCOUNTER → 2024-07-03 10:55 | Outpatient (BNVA) | payer MEDICARE, SELFPAY | PROVIDERS: PCP Nurse Practitioner Family; Visit Provider Nurse Practitioner Family | DX: J44.0 Chronic obstructive pulmonary disease with (acute) lower respiratory infection (principal); J18.9 Pneumonia, unspecified organism | CPT/HCPCS: 96127; 99212 ==

== ENCOUNTER 2024-07-27 12:43 | Outpatient (REF) | payer MEDICARE, SELFPAY ==
--- NOTE | ~2024-07-27 | CT_ITS ---
CLINICAL HISTORY: Z87.891 - Personal history of nicotine dependence CT lung cancer screening (LDCT) Comparison: CR/SR - XR CHEST 1V - 06/17/24 10:49 EDT CR/SR - XR CHEST 2V - 02/24/24 11:50 EST Technique: Axial CT images of the chest using low-dose technique. Referring provider counseled the patient on shared decision-making for LDCT screening. Additional counseling was provided on smoking cessation. Effective radiation dose total: DLP 38.6 mGycm, CTDIvol 1.2 mGy. Findings: Lung: No suspicious lung nodules. Few scattered small calcified granulomas /micro nodules. Mild centrilobular emphysema. Coronary artery calcifications: Moderate Limited upper abdomen: Unremarkable Other: None Impression: Lung rads category 2; no suspicious lung nodules. Few scattered calcified granuloma/micro nodules. Continue annual screening. Mild centrilobular emphysematous changes. Moderate coronary artery calcifications. Category 1: Normal; continue annual screening Category 2: Benign appearance or behavior, continue annual screening Category 3: Probably benign, [address] recommended Category 4A: Suspicious, [address] recommended; may consider PET/CT Category 4B: Suspicious, Additional diagnostics and/or tissue sampling recommended Category 4X: Suspicious, Additional diagnostics and/or tissue sampling recommended Category 0: Recalls (incomplete screen due to Incomplete coverage, Noise, Respiratory motion, Expiration, Obscured by acute abnormality) This document has been electronically signed by: Lisa Polanco MD on 07/27/2024 20:30:17
--- OUTSIDE RECORDS SUMMARY | 2024-07-27 14:08 | XMS_ITS | Patient Health Record ---
Author Organization [facility] Address [address] [place] [address] Care Team Providers Care Heel Seat Pounder Name Role Phone BIN ANDREW Primary Care Provider Adan Yuen Jr Unavailable Allergies No Known Allergies Reason For Referral No Information Medications Medication SIG (Take, Route, Frequency, Duration) Notes Start Date End Date Status Omeprazole 20 MG TAKE 1 CAPSULE BY [facility] 30 MINUTES BEFORE MORNING MEAL [...] Problem Status W/U Status Risk Notes Problem 020764375 Colon cancer screening (Z12.11) Active confirmed Problem 547755909 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 Problem 639522804 Barretts esophagus without dysplasia (K22.70) Active confirmed Problem Garcia''s esophagus without dysplasia (K22.70) Active confirmed Vital Signs Temperature 97.7 degrees Fahrenheit 06/01/2024 Blood pressure diastolic 01 mm Hg 06/01/2024 Height 65.5 in 06/01/2024 Blood pressure systolic 001 mm Hg 06/01/2024 Weight 168.2 lbs 06/01/2024 BMI 27.56 kg/m2 06/01/2024 Encounters Encounter Location Date Provider Diagnosis [facility] [address] [facility] [address] [place] [address] 06/01/2024 Adan Velasquez Jr Garcia's esophagus without dysplasia K22.70 and Colon cancer screening Z12.11 [facility] [address] [place] [address] 07/06/2024 Adan Velasquez Jr [facility] [address] [place] [address] 07/27/2024 Adandalia Velasquez Jr Assessments Encounter Date Diagnosis (ICD Code) Assessment Notes Treatment Notes Treatment Clinical Notes Section Notes 06/01/2024 Colon cancer screening (ICD-10 - Z12.11) Colonoscopy material was printed At this time, he is doing well. We discussed Garcia's esophagus. We discussed gastroesophageal reflux disease. We discussed diet, lifestyle modifications, and weight management regarding the treatment of reflux. He is advised to continue his present regimen. He is due for follow-up colonoscopy. This will be arranged. We discussed risks and benefits of the procedure today. He understands these and agrees to proceed. This will be scheduled at his convenience. 06/01/2024 Garcia's esophagus without dysplasia (ICD-10 - K22.70) At this time, he is doing well. We discussed Garcia's esophagus. We discussed gastroesophageal reflux disease. We discussed diet, lifestyle modifications, and weight management regarding the treatment of reflux. He is advised to continue his present regimen. He is due for follow-up colonoscopy. This will be arranged. We discussed risks and benefits of the procedure today. He understands these and agrees to proceed. This will be scheduled at his convenience. Plan Of Treatment Future Test Test Name Order Date UPPER GI ENDOSCOPY ANY OTHER TECHNIQUE 0 08/18/2014 COLONOSCOPY 08/18/2014 UPPER GI ENDOSCOPY 12/26/2017 UPPER GI ENDOSCOPY 04/24/2023 COLONOSCOPY 07/04/2024 Next Appt Details Provider Name:Adandalia nam Jr, 06/03/2025 01:35:00 PM, [address] [facility], [address], [place], [address], Insurance Providers Payer Name Payer Address Payer Phone Subscriber Number Group Number Insured Name Patient Relationship to Insured Coverage Start Date Coverage End Date [facility] [address] [place] [address] [id number] MORGAN PORTILLO Self - patient is the insured Medical (General) History Medical History History ICD Code Garcia's esophagus, EGD 03/25 9, multilinear epithelium with no dysplasia. 5 year recall. hypertension colonoscopy 09/17/14, diverticulosis, fol low up to 08/2024 COPD Hyperlipidemia Surgical History Surgery Date(Month/Year)
--- OUTSIDE RECORDS SUMMARY | 2024-07-27 14:09 | XMS_ITS ---
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 confirmed Vital Signs Temperature 97.7 degrees Fahrenheit 06/02/19 25 Blood pressure systolic 001 mm Hg 06/02/19 25 Blood pressure diastolic 01 mm Hg 025 Height 65.5 in 06/01/2024 Weight 168.2 lbs 06/01/2024 BMI 27.56 kg/m2 06/01/2024 Encounters Encounter Location Date Provider Diagnosis [facility] [address] [place] [address] 06/01/2024 Adan Velasquez Jr Fuentes's esophagus without dysplasia K22.70 and Colon cancer screening Z12.11 Assessments Encounter Date Diagnosis (ICD Code) Assessment Notes Treatment Notes Treatment Clinical Notes Section Notes 06/01/2024 Fuentes's esophagus without dysplasia (ICD-10 - K22.70) At this time, he is doing well. We discussed Fuentes's esophagus. We discussed gastroesophageal reflux disease. We discussed diet, lifestyle modifications, and weight management regarding the treatment of reflux. He is advised to continue his present regimen. He is due for follow-up colonoscopy. This will be arranged. We discussed risks and benefits of the procedure today. He understands these and agrees to proceed. This will be scheduled at his convenience. 06/01/2024 Colon cancer screening (ICD-10 - Z12.11) Colonoscopy material was printed At this time, he is doing well. We discussed Fuentes's esophagus. We discussed gastroesophageal reflux disease. We discussed diet, lifestyle modifications, and weight management regarding the treatment of reflux. He is advised to continue his present regimen. He is due for follow-up colonoscopy. This will be arranged. We discussed risks and benefits of the procedure today. He understands these and agrees to proceed. This will be scheduled at his convenience. Plan Of Treatment Treatment Notes Assessment Notes Colon cancer screening Colonoscopy mater ial was printed Future Test Test Name Order Date COLONOSCOPY 07/04/2024 Next Appt Details Provider Name:Adan nam , 06/03/2025 01:35:00 PM, [address] [place] [address], [address], [address], Progress Notes * MORGAN PORTILLO IIIDOB:12/1950 (74 yo M)Acc No.[id number]:06/01/2024 Progress Notes Patient:?MORGAN PORTILLO I II Provider:?Adan Velasquez MD :1950???Age:74 Y???Sex:Male Michael e:06/01/2024 Address:[address] [place], [place] [id number] Pcp:BIN ANDREW Subjective: * Chief Complaints: * ???1. Patient presents today for fuentes's. * HPI: ???New symptom(s):? The patient is a pleasant 74-year-old man who returns today for follow-up of Fuentes's esophagus. He last underwent upper endoscopy in April 2023. This showed no intestinal metaplasia on biopsies. Endoscopy suggested a 1 cm area of Fuentes's tissue. We reviewed this today. He reports his reflux symptoms are under good control. He takes omeprazole 20 mg daily. He has no dysphagia, hematemesis, or melena. Weight and appetite have been stable. Colonoscopy in 2014 showed diverticulosis. He is due for follow-up in August. He has no rectal bleeding, abdominal pain, rectal pain, or change in his bowel habits. * ROS:?General/Constitutional:?Change in appetite?denies.?Fatigue?denies.?ENT:?Patient denies?difficulty swallowing.?Respiratory:?Patient denies?shortness of breath.?Cardiovascular:?Patient denies?chest pain.?Gastrointestinal:?Comments?See HPI for details.?Genitourinary:?Difficulty urinating?denies.?Incontinence?denies.?Musculoskeletal:?Patient denies?muscle aches.?Skin:?Patient denies?pruritis.?Neurologic:?Patient denies?low back pain.?Psychiatric:?Patient denies?mental or physical abuse.? * Medical History:?Fuentes's e sophagus, EGD 04/12, multilinear epithelium with no dysplasia. 5 year recall., Hypertension, Colonoscopy 09/17/14, diverticulosis, follow up to 08/2024, COPD, Hyperlipidemia. * Family History:?Father: dece ased.?Mother: .?Siblings: alive, brother throat cancer [facility], diagnosed with Heart disease.? No family history [...] in, BMI:27.56Index, BP:001/01mm Hg, Temp:97.7, Wt- k.3. * Examination: ???General Examination: ?GENERAL APPEARANCE:?in no acute distress.?HEAD:?normocephalic.?EYES:?sclera non-icteric.?ORAL CAVITY:?mucosa moist.?NECK/THYROID:?no lymphadenopathy.?SKIN:?anicteric.?HEART:?S1, S2 normal, no murmurs.?LUNGS:?clear to auscultation bilaterally.?CHEST:?normal shape and expansion.?ABDOMEN:?soft, nontender, nondistended, bowel sounds present, no organomegaly .?EXTREMITIES:?no clubbing, cyanosis, or edema.?PSYCH:?cognitive function intact.? Assessment: * Assessment: 1.?Fuentes's esophagus witho ut dysplasia - K22.70 (Primary)???2.?Colon cancer screening - Z12.11??? At this time, he is doing we ll. We discussed Fuentes's esophagus. We discussed gastroesophageal reflux disease. We discussed diet, lifestyle modifications, and weight management regarding the treatment of reflux. He is advised to continue his present regimen. He is due for follow-up colonoscopy. This will be arranged. We discussed risks and benefits of the procedure today. He understands these and agrees to proceed. This will be scheduled at his convenience. Plan: * Treatment: 2.?Colon cancer screening?Procedure: COLONOSCOPY (Ordered for 07/04/2024) Notes: Colonoscopy material was printed?? * Preventive Medicine:? ??Counseling:?Care goal follow-up plan:?Above Normal BMI Follow-up?Dietary management education, guidance, and counseling,?BMI management provided?Yes.? ??Screenings:?Fall Risk Screening?Fall Risk Assessment:?No falls in the past year,?Screening:?No falls in the past year,?Assessment:?Not performed, no reason specified,?Plan of Care:?Not documented, no reason specified.? * * Sign off status: Completed true * Provider:?Adan Velasquez MD Date:?0 06/01/2024 Generated for Aldo koenig/Jennifer/eTransmitting on:?07/27/2024 02:08 PM EDT History and Physical Notes * HPI (History of Present Illness) Category Sub-Category Detail Notes Category Not es New symptom(s) The patient is a pleasant 74-year-old man who returns today for follow-up of Fuentes's esophagus. He last underwent upper endoscopy in April 2023. This showed no intestinal metaplasia on biopsies. Endoscopy suggested a 1 cm area of Fuentes's tissue. We reviewed this today. He reports his reflux symptoms are under good control. He takes omeprazole 20 mg daily. He has no dysphagia, hematemesis, or melena. Weight and appetite have been stable. Colonoscopy in 2014 showed diverticulosis. He is due for follow-up in August. He has no rectal bleeding, abdominal pain, rectal pain, or change in his bowel habits. Examination Category Sub-Category Detail Notes Category Not es General Examination GENERAL APPEARANCE: in no acute di stress HEAD: normocephalic EYES: sclera non-icteric NECK/THYROID: no lymphadenopathy HEART: S1, S2 normal, no mu rmurs CHEST: normal shape and exp ansion LUNGS: clear to auscultatio n bilaterally ABDOMEN: soft, nontender, non distended, bowel sounds present, no organomegaly SKIN: anicteric EXTREMITIES: no clubbing, cyanosi s, or edema PSYCH: cognitive function i ntact ORAL CAVITY: mucosa moist
== END 2024-07-27 12:44 | disposition home or self-care (01) ==
LOC: HO.CT 12:43
PROVIDERS: PCP Nurse Practitioner Family; Visit Provider Internal Medicine Pulmonary Disease
DX: Z12.2 Encounter for screening for malignant neoplasm of respiratory organs (principal); Z87.891 Personal history of nicotine dependence
CPT/HCPCS: 71271

== ENCOUNTER → 2024-07-27 12:45 | Outpatient (BNV) | payer MEDICARE, SELFPAY | PROVIDERS: PCP Nurse Practitioner Family; Visit Provider Student in an Organized Health Care Education/Training Program | DX: Z87.891 Personal history of nicotine dependence (principal) | CPT/HCPCS: 71271 ==

== ENCOUNTER 2024-08-25 09:50 | Outpatient (AMB) | payer MEDICARE, SELFPAY ==
[2024-08-25 09:53] VITALS: BP 130/70; PULSE 73; O2SAT 94; BMI 26.9
--- NOTE | 2024-08-25 09:53 | MHC.PC.OV ---
Vital Signs 08/25/24 09:53 Height 5 ft 5.5 in Weight 164 lb BMI 26.9 BP 130/70 Blood Pressure Location Lt brachial Position Sitting Pulse 73 Pulse Source Pulse Oximeter Pulse Oximetry (%) 94 Oxygen Delivery Method Room Air Intake Visit Reasons: 6 months follow up Maintenance Engineer Required: No Accompanied by: Self / Same As Patient Allergies levalbuterol [From Xopenex] Adverse Reaction (Severe, Verified 08/25/24 09:54) Shakiness Tobacco use date assessed: 07/03/24 Fall risk assessment: No Falls in past year Last assessed Fall Risk: 08/25/24 Dental Screening Dental Screen Date: 07/03/24 HPI 6 months follow up HPI Details Chief Complaint Request for evaluation of current chronic condition management. History of Present Illness The patient is a 74-year-old male presenting for monitoring and management of chronic conditions, particularly dyslipidemia and COPD. He has a history of moderate coronary artery calcifications, as noted on a computed tomography scan of his chest, with plans for an annual follow-up. He is currently managed on 5 mg daily of rosuvastatin, which I plan to increase to 20 mg daily to better control his cholesterol levels. The patient denies any chest pain or increased shortness of breath, though he does experience intermittent dyspnea upon exertion. He declines the need for further pulmonary consultation or maintenance inhaler use, preferring to manage symptoms with intermittent use of his rescue inhaler. Overall, he reports his health as satisfactory. Social History - Declines seeing a manager developmental despite intermittent dyspnea. - Prefers not to use maintenance inhalers for COPD. - Uses a rescue inhaler intermittently, as needed. Health Maintenance - Plan to increase rosuvastatin from 5 mg daily to 20 mg daily, based on recent findings of moderate coronary artery calcifications. - Monitoring of cholesterol levels with planned laboratory assessments. Review of Systems - Cardiovascular: Denies chest pain. - Respiratory: Denies any increased shortness of breath; reports dyspnea on exertion. Physical Exam General: Cooperative, healthy appearing, comfortable, no acute distress and well developed Orientation: Patient oriented x3 Limitations: No limitations Head: Normal to inspection Ears: Hearing grossly normal bilaterally Nose: Normal external nose present Face and sinus: Normal facial exam Eyes: Appearance normal, both eyes and all related structures Neck: Normal visual inspection and Yes full ROM Respiratory: Normal respiratory effort and able to speak in complete sentences. Clear to auscultation bilaterally, though patient reports some shortness of breath with exertion Cardiovascular: Regular rate and rhythm. Normal S1 and S2 GI: Normal to inspection. Soft to palpation and nontender Skin: No rashes or lesions noted Neuro: Patient oriented x3 Extremities: Normal to inspection Results - Tests and Diagnostics: Recent CT scan of the chest revealed moderate coronary artery calcifications. Plan I will increase the patient?s rosuvastatin dosage from 5 mg to 20 mg daily, considering his moderate coronary artery calcifications and the goal of optimizing cholesterol management. He will undergo follow-up laboratory testing to evaluate the effectiveness of this dosage adjustment. For his COPD, I will respect his decision to manage symptoms with only intermittent use of his rescue inhaler and without consulting a manager developmental. Consistent monitoring will ensure that his COPD does not worsen, and adjustments can be made if needed. He reports that he feels well overall and is satisfied with the current treatment approach. Discussion Notes I reviewed with the patient the importance of managing his dyslipidemia given the CT findings of moderate coronary artery calcifications. We discussed increasing his rosuvastatin dosage to 20 mg daily, emphasizing the potential benefits in reducing his cardiovascular risk and improving his cholesterol profile. The patient expressed understanding of these benefits and consented to the plan. We also discussed his COPD management strategy, and he agrees to continue using his rescue inhaler on an intermittent as-needed basis, without initiating a maintenance inhaler or seeking manager developmental intervention at this time, given his current symptomatology. I instructed him to complete the upcoming lab tests for cholesterol and return for follow-up assessments to ensure effective management of his conditions. Patient Instructions - Increase rosuvastatin dosage from 5 mg to 20 mg daily as prescribed. - Undergo scheduled lab tests for cholesterol monitoring. - Use rescue inhaler as needed and monitor symptoms of COPD. - Return for follow-up as scheduled. - Report any significant changes in symptoms, such as increased shortness of breath or chest pain, immediately. [facility] Medical History Diverticulosis Hyperlipidemia Barretts esophagus Hemorrhoids COPD (chronic obstructive pulmonary disease) Carotid bruit HTN (hypertension) Surgical History H/O colonoscopy History of esophagogastroduodenoscopy (EGD) Hx of tonsillectomy Family History Father No problems noted. Mother No problems noted. Social History Household Members: Spouse Housing: House Do you presently have visiting nurse or other home services: No Patient Tobacco Use Status: Former Tobacco user Tobacco use type: Cigarette Years Smoked: 10 in 2015, started around age 14, 1.5PPD e-Cigarette/Vaping Use: Never Used Second Hand Smoke Exposure: Yes Substance Use Type: Marijuana service: No Current occupational status: retired Cognitive needs: No Hearing needs: No Vision needs: Yes (Glasses) Questionnaire PHQ-9 Over the last 2 weeks, how often have you been bothered by any of the following problems? 1. Little interest or pleasure in doing things: not at all 2. Feeling down, depressed, or hopeless: not at all 3. Trouble falling or staying asleep, or sleeping too much: not at all 4. Feeling tired or having little energy: not at all 5. Poor appetite or overeating: not at all 6. Feeling bad about yourself - or that you are a failure or have let yourself or your family down: not at all 7. Trouble concentrating on things, such as reading the newspaper or watching television: not at all 8. Moving or speaking so slowly that other people could have noticed. Or the opposite - being so fidgety or restless that you have been moving around a lot more than usual: not at all 9. Thoughts that you would be better off or of hurting yourself in some way: not at all Total score: 0 Depression Screening Interpretation: Negative Depression Screening Done: Yes 04986 - PHQ-9 Billing: Yes Source: Developed by Drs. Kishore Medellin, Caridad Fierro, Ottoniel Bui and colleagues, with an educational dakota from [employer]. Thrive Questionnaire Date Thrive assessed: 08/25/24 I am a: Patient What is your living situation today?: I have a steady place to live Within the past 12 months, did the food you bought not last and you didn't have the money to get more?: Never true Within the past 12 months, did you worry whether your food would run out before you got money to buy more?: Never true Do you have trouble paying for medicines?: No Do you have trouble getting transportation to medical appointments?: No Do you have trouble paying your heating and electricity bill?: No Do you have trouble taking care of your child, family member or friend?: No Do you have trouble with day-to-day activities such as bathing, preparing meals, shopping, managing finances, etc.?: No Are you currently unemployed and looking for a job?: No Are you interested in more education?: No Please select the resources that you would like help with: None Currently or been in a relationship where the following occur: No concerns reported THRIVE Score: 0 AUDIT C Alcohol Use Questionnaire (AUDIT-C) 1. How often do you have a drink containing alcohol?: Monthly or less 2. How many drinks containing alcohol do you have on a typical day when you are drinking?: 1 or 2 3. How often do you have six or more drinks on one occasion?: Never Total Score: 1 Score Reviewed/Action Taken: Yes WESLEY-7 AMB Questionnaire WESLEY-7 Date WESLEY - 7 assessed: 08/25/24 Feeling nervous, anxious, or on edge: 0 = Not at all Not being able to stop or control worryin = Not at all Worrying too much about different things: 0 = Not at all Trouble relaxin = Not at all Being so restless that it is hard to sit still: 0 = Not at all Becoming easily annoyed or irritable: 0 = Not at all Feeling afraid as if something awful might happen: 0 = Not at all Total WESLEY-7 score (0-4 normal; 5-9 mild; 10-14 moderate; 15-21 severe): 0 Source: Developed by Drs. Kishore Medellin, Caridad Fierro, Ottoniel Bui and colleagues, with an educational dakota from [employer]. WESLEY-7 Assessment Billing WESLEY-7 Assessment Tool: WESLEY-7 Assessment 03142 Physical exam (Primary Care) Vital Signs: Last Vital Signs Pulse 73 08/25/24 09:53 BP 130/70 08/25/24 09:53 Pulse Ox 94 08/25/24 09:53 Oxygen Delivery Method Room Air 08/25/24 09:53 BMI result Body Mass Index 26.9 Tobacco/Smoking Status: Tobacco use Status Tobacco use date assessed 07/03/24 08/25/24 09:57 Patient Tobacco Use Status Former Tobacco user 08/25/24 09:57 Tobacco use type Cigarette 08/25/24 09:57 e-Cigarette/Vaping Use Never Used 08/25/24 09:57 PHQ-9: PHQ-9 Score PHQ-9: Total score 0 08/25/24 09:57 Depression Screening Interpretation: Negative Thrive Assessment: Date of Thrive Assessment Date Thrive assessed 08/25/24 08/25/24 09:57 Currently or been in a relationship where the following occur: No concerns reported Coding Level of Care Code Est Pt Level 3 (49249) Diagnoses Dyslipidemia E78.5 Chronic obstructive pulmonary disease with acute lower respiratory infection J44.0 COPD type: COPD with acute lower respiratory infection Screening PSA (prostate specific antigen) Z12.5 Additional Codes WESLEY-7 Assessment Billing - WESLEY-7 Assessment Tool: WESLEY-7 Assessment 87196 ([id number]) PHQ-9 - 48090 - PHQ-9 Billing: Yes ([id number]) Assessment & Plan Assessment & Plan (1) Dyslipidemia: Code(s): E78.5 - Hyperlipidemia, unspecified Category: Medical (2) COPD (chronic obstructive pulmonary disease): Code(s): J44.9 - Chronic obstructive pulmonary disease, unspecified Category: Medical Qualifiers: COPD type: COPD with acute lower respiratory infection Qualified Code(s): J44.0 - Chronic obstructive pulmonary disease with (acute) lower respiratory infection (3) Screening PSA (prostate specific antigen): Code(s): Z12.5 - Encounter for screening for malignant neoplasm of prostate Category: Medical Plan: . Plan . Orders: Orders Complete Blood Count Auto Diff Today E78.5 - Hyperlipidemia, unspecified, J44.0 - Chronic obstructive pulmonary disease with (acute) lower respiratory infection Comprehensive [place]. Panel Fast Today E78.5 - Hyperlipidemia, unspecified, J44.0 - Chronic obstructive pulmonary disease with (acute) lower respiratory infection Lipid Panel Today E78.5 - Hyperlipidemia, unspecified, J44.0 - Chronic obstructive pulmonary disease with (acute) lower respiratory infection UA CC w/rflx Micro + Cult Today E78.5 - Hyperlipidemia, unspecified, J44.0 - Chronic obstructive pulmonary disease with (acute) lower respiratory infection TSH reflex Free T4 Today E78.5 - Hyperlipidemia, unspecified, J44.0 - Chronic obstructive pulmonary disease with (acute) lower respiratory infection Prostate Specific Antigen Scr Today Z12.5 - Encounter for screening for malignant neoplasm of prostate Medications: Changed From rosuvastatin 5 mg PO DAILY 90 tabs 1RF To rosuvastatin 20 mg PO DAILY 90 tabs 1RF
--- OUTSIDE RECORDS SUMMARY | 2024-08-25 11:04 | XMS_ITS | Patient Health Record ---
Author Organization [facility] Address [address] [place] [id number] Care Team Providers Care Industrial Hygenist Name Role Phone BIN ANDREW Primary Care Provider Adan Yuen Jr Unavailable [phone] Allergies No Known Allergies Reason For Referral No Information Medications Medication SIG (Take, Route, Frequency, Duration) Notes Start Date End Date Status Omeprazole 20 MG TAKE 1 CAPSULE BY [facility] 30 MINUTES BEFORE MORNING MEAL [...] Problem Status W/U Status Risk Notes Problem [id number] Colon cancer screening (Z12.11) Active confirmed Problem [id number] 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 Problem [id number] Barretts esophagus without dysplasia (K22.70) Active confirmed Problem Garcia''s esophagus without dysplasia (K22.70) Active confirmed Vital Signs Temperature 97.7 degrees Fahrenheit 06/01/2024 Blood pressure diastolic 01 mm Hg 06/01/2024 Height 65.5 in 06/01/2024 Blood pressure systolic 001 mm Hg 06/01/2024 Weight 168.2 lbs 06/01/2024 BMI 27.56 kg/m2 06/01/2024 Encounters Encounter Location Date Provider Diagnosis [facility] [address] [place] [address] 06/01/2024 Adan Velasquez Jr Garcia's esophagus without dysplasia K22.70 and Colon cancer screening Z12.11 [facility] [address] [place] [address] 07/06/2024 Adan Velasquez Jr [facility] [address] [place] [phone] 07/27/2024 Adandalia Velasquez Jr Assessments Encounter Date [...] Name:Adandalia nam Jr, 06/03/2025 01:35:00 PM, [address], [address], [place], [address], Insurance Providers Payer Name Payer Address Payer Phone Subscriber Number Group Number Insured Name Patient Relationship to Insured Coverage Start Date Coverage End Date [facility] [address] [place] [address] [id number] MORGAN PORTILLO Self - patient is the insured Medical (General) History Medical History History ICD Code Garcia's esophagus, EGD 03/25 9, multilinear epithelium with no dysplasia. 5 year recall. hypertension colonoscopy 09/17/14, diverticulosis, fol low up to 08/2024 COPD Hyperlipidemia Surgical History Surgery Date(Month/Year)
== END 2024-08-25 10:24 | disposition home or self-care (01) ==
LOC: HO.HMCC 09:51
PROVIDERS: PCP Nurse Practitioner Family; Visit Provider Nurse Practitioner Family
DX: E78.5 Hyperlipidemia, unspecified (principal); J44.0 Chronic obstructive pulmonary disease with (acute) lower respiratory infection; Z12.5 Encounter for screening for malignant neoplasm of prostate

== ENCOUNTER → 2024-08-25 09:50 | Outpatient (BNVA) | payer MEDICARE, SELFPAY | PROVIDERS: PCP Nurse Practitioner Family; Visit Provider Nurse Practitioner Family | DX: J44.0 Chronic obstructive pulmonary disease with (acute) lower respiratory infection (principal); E78.5 Hyperlipidemia, unspecified; Z79.899 Other long term (current) drug therapy | CPT/HCPCS: 96127; 99212 ==